=== PATIENT | male | born 1975 | race Caucasian/White ===

== ENCOUNTER 2016-10-28 15:59 | Emergency (ER) | payer OTHER ==
[~2016-10-28] VITALS: Ht 187.9 cm; Wt 86.2 kg
[~2016-10-28 15:59] MED LIST: ALPRAZOLAM2 MG PO; ATARAX,VISTARIL50 MG PO; ATARAX25 MG PO; BACTRIM DS 8001 TA1 PO; CARBIDOPA/LEVOD1 TA1 PO; CEPHALEXIN500 M1 PO; CIPROFLOXACIN500 MG PO; CLINDAMYCIN HC300 MG PO; CLINDAMYCIN150 MG PO; COMBIVENT1 ARO IH; DICLOFENAC POTA50 MG PO; EES PO; ERYTHROMYCIN ETHYLSUCCINATE PO; FIORICET 325 MG1 TAB PO; FLEXERIL5 MG PO; HYDROCODONE BIT1 T11 PO; LISINOPRIL5 MG PO; MEDROL DOSEPAK4 MG PO; METHOCARBAMOL750 M1 PO; MOTRIN800 MG PO; Motrin,Rufen800 MG PO; NAPROSYN500 MG PO; NEURONTIN100 MG PO; NEURONTIN300 MG PO; NEURONTIN400 MG PO; NEURONTIN600 MG PO; OMEPRAZOLE40 MG PO; PAROXETINE HCL30 MG PO; PAXIL10 MG PO; PAXIL20 M1 PO; PAXIL30 M1; PAXIL30 M1 PO; PAXIL30 M2 PO; PAXIL30 MG PO; PAXIL40 M1 PO; PERCOCET 325 MG1 TA2 PO; PRINIVIL10 MG PO; ROBAXIN500 MG PO; TRAMADOL HCL50 MG PO; TYLENOL W/CODEI1 TA2 PO; ULTRAM50 MG PO; VALIUM10 MG PO; VICODIN 5/500 505 MG PO; VICODIN 500 MG-1 TAB PO; VISTARIL25 M1 PO; VOLTAREN50 M1 PO; VOLTAREN75 MG PO; XANAX; XANAX XR2 MG PO; XANAX0.25 MG PO; XANAX1 MG PO; XANAX2 MG PO; ZITHROMAX Z PA250 MG PO
[2016-10-28 16:31] VITALS: BP 140/94
[2016-10-28 16:32] LABS: BASO % 0.2 % (0.0-1.0); EOS # 0.1 10*3/uL (0.0-0.4); EOS % 0.9 % (1.0-4.0); HEMATOCRIT 45.3 % (42.0-52.0); HEMOGLOBIN 14.8 g/dl (14.0-18.0); IG # 0.1 10*3/uL (0.0-0.1); LYMPH # 1.3 10*3/uL (1.3-4.4); LYMPH % 11.8 % (27.0-41.0); MEAN CELL VOLUME 92.6 fl (80.0-94.0); MEAN CORPUSCULAR HGB 30.3 pg (27.0-31.0); MEAN CORPUSCULAR HGB CONC 32.7 g/dl (33.0-37.0); MEAN PLATELET VOLUME 9.6 fl (9.6-12.3); MONO # 0.4 10*3/uL (0.1-1.0); MONO % 3.7 % (3.0-9.0); NEUT # 9.4 10*3/uL (2.3-7.9); PLATELET COUNT AUTOMATED 259 10*3/uL (130-400); RED BLOOD COUNT 4.89 10*6/uL (4.50-5.90); RED CELL DISTRI WIDTH 13.2 % (0-14.5); WHITE BLOOD COUNT 11.3 10*3/uL (4.8-10.8)
[2016-10-28 16:47] LABS: ALBUMIN 3.4 gm/dl (3.1-4.5); ALKALINE PHOSPHATASE 68 U/L (45-117); BILIRUBIN, TOTAL 0.4 mg/dl (0.2-1.0); BUN 11 mg/dl (7-24); CARBON DIOXIDE 30 mmol/L (21-32); CHLORIDE 104 mmol/L (98-107); EST GLOM FILT AFRICAN AMERICAN > 60 ml/min; GLUCOSE 152 mg/dL (65-99); POTASSIUM 4.3 mmol/L (3.5-5.1); SGOT/AST 84 IU/L (3-35); SGPT/ALT 135 U/L (12-78); SODIUM 141 mmol/L (136-145); TOTAL PROTEIN 6.9 gm/dL (6.4-8.2)
[2016-10-28 18:22] LABS: BILIRUBIN NEGATIVE (NEGATIVE); BLOOD NEGATIVE (NEGATIVE); CLARITY CLEAR (CLEAR); COLOR YELLOW (YELLOW); GLUCOSE NEGATIVE (NEGATIVE); KETONE NEGATIVE (NEGATIVE); LEUKO ESTERASE NEGATIVE (NEGATIVE); NITRITE NEGATIVE (NEGATIVE); PH 7.5 (5.0-9.0); PROTEIN 2+ (NEGATIVE); SPECIFIC GRAVITY 1.015 (1.005-1.030); UROBILINOGEN 0.2 E.U./dl (0.2-1.0)
[2016-10-28 18:24] LABS: URINE AMPHETAMINES < 1000 (1000ng/ml); URINE BARBITURATES < 200 (200ng/ml); URINE COCAINE < 300 (300ng/ml)
[2016-10-28 18:29] LABS: MUCOUS TRACE; URINE REFLEX COMMENT NO (NO)
== END 2016-10-28 20:15 | disposition home or self-care (01) ==
LOC: ED 15:59
PROVIDERS: Nurse Practitioner Family
DX: T40.1X1A Poisoning by heroin, accidental (unintentional), initial encounter (principal); F15.94 Other stimulant use, unspecified with stimulant-induced mood disorder; F41.9 Anxiety disorder, unspecified; K21.9 Gastro-esophageal reflux disease without esophagitis; I10 Essential (primary) hypertension; F12.10 Cannabis abuse, uncomplicated; F14.10 Cocaine abuse, uncomplicated; Z88.0 Allergy status to penicillin; Z88.8 Allergy status to other drugs, medicaments and biological substances; Z79.899 Other long term (current) drug therapy; Y92.9 Unspecified place or not applicable

== ENCOUNTER 2017-04-30 19:50 | Inpatient (IN) | payer OTHER ==
[2017-04-30] VITALS (9 sets, daily range): BP systolic 92–132; BP diastolic 55–82
[~2017-04-30] VITALS: Ht 177.8 cm; Wt 79.0 kg
[~2017-04-30 19:50] MED LIST changes: +XANAX0.5 MG PO; -XANAX1 MG PO
[2017-04-30 20:13] LABS: BASO # 0.1 10*3/uL (0.0-0.1); BASO % 0.5 % (0.0-1.0); EOS # 0.2 10*3/uL (0.0-0.4); EOS % 1.8 % (1.0-4.0); HEMATOCRIT 40.9 % (42.0-52.0); HEMOGLOBIN 13.6 g/dl (14.0-18.0); LYMPH # 3.7 10*3/uL (1.3-4.4); MEAN CELL VOLUME 91.9 fl (80.0-94.0); MEAN CORPUSCULAR HGB 30.6 pg (27.0-31.0); MEAN CORPUSCULAR HGB CONC 33.3 g/dl (33.0-37.0); MEAN PLATELET VOLUME 9.8 fl (9.6-12.3); MONO # 0.5 10*3/uL (0.1-1.0); MONO % 5.2 % (3.0-9.0); NEUT # 4.8 10*3/uL (2.3-7.9); NEUT % 52.3 % (47.0-73.0); PLATELET COUNT AUTOMATED 247 10*3/uL (130-400); RED BLOOD COUNT 4.45 10*6/uL (4.50-5.90); RED CELL DISTRI WIDTH 13.2 % (0-14.5); WHITE BLOOD COUNT 9.2 10*3/uL (4.8-10.8)
[2017-04-30 20:21] LABS: BILIRUBIN NEGATIVE (NEGATIVE); BLOOD NEGATIVE (NEGATIVE); CLARITY CLEAR (CLEAR); COLOR YELLOW (YELLOW); GLUCOSE NEGATIVE (NEGATIVE); KETONE NEGATIVE (NEGATIVE); LEUKO ESTERASE NEGATIVE (NEGATIVE); NITRITE NEGATIVE (NEGATIVE); PROTEIN NEGATIVE (NEGATIVE); SPECIFIC GRAVITY <= 1.005 (1.005-1.030); UROBILINOGEN 0.2 E.U./dl (0.2-1.0)
[2017-04-30] MEDS ORDERED: ARIPIPRAZOLE10 MG PO (20:23)
[2017-04-30] MEDS ORDERED: 'CLONIDINE0.1 MG PO (20:23)
[2017-04-30 20:28] LABS: RBC 0-2 rbc/hpf (0-2); WBC 0-2 wbc/hpf (0-5)
[2017-04-30 20:29] LABS: ALBUMIN 3.8 gm/dl (3.1-4.5); ALKALINE PHOSPHATASE 59 U/L (45-117); BILIRUBIN, TOTAL 0.4 mg/dl (0.2-1.0); BUN 9 mg/dl (7-24); CARBON DIOXIDE 24 mmol/L (21-32); CHLORIDE 105 mmol/L (98-107); EST GLOM FILT AFRICAN AMERICAN > 60 ml/min; GLUCOSE 110 mg/dL (65-99); POTASSIUM 3.6 mmol/L (3.5-5.1); SGOT/AST 42 IU/L (3-35); SGPT/ALT 75 U/L (12-78); SODIUM 143 mmol/L (136-145); TOTAL PROTEIN 7.2 gm/dL (6.4-8.2)
[2017-04-30 20:32] LABS: URINE AMPHETAMINES < 1000 (1000ng/ml); URINE BARBITURATES < 200 (200ng/ml); URINE COCAINE < 300 (300ng/ml)
[2017-05-01] VITALS (7 sets, daily range): BP systolic 90–128; BP diastolic 49–81
[2017-05-01 05:53] LABS: BUN 7 mg/dl (7-24); CARBON DIOXIDE 25 mmol/L (21-32); CHLORIDE 111 mmol/L (98-107); CHOLESTEROL 128 mg/dL (<200); EST GLOM FILT AFRICAN AMERICAN > 60 ml/min; FREE T4 0.84 ng/dl (0.76-1.46); GLUCOSE 126 mg/dL (65-99); HDL CHOLESTEROL 34 mg/dl (40-60); LDL CHOLESTEROL 44 mg/dL (9-159); MAGNESIUM 1.9 mg/dL (1.5-2.1); PHOSPHOROUS 2.3 mg/dL (2.5-4.9); POTASSIUM 4.4 mmol/L (3.5-5.1); SODIUM 144 mmol/L (136-145); TRIGLYCERIDES 250 mg/dl (<150); VLDL CHOLESTEROL 50 mg/dL (6-40)
[2017-05-01 05:58] LABS: BASO % 0.5 % (0.0-1.0); EOS # 0.2 10*3/uL (0.0-0.4); EOS % 2.8 % (1.0-4.0); HEMATOCRIT 36.5 % (42.0-52.0); HEMOGLOBIN 12.1 g/dl (14.0-18.0); LYMPH # 3.6 10*3/uL (1.3-4.4); LYMPH % 56.2 % (27.0-41.0); MEAN CELL VOLUME 94.3 fl (80.0-94.0); MEAN CORPUSCULAR HGB 31.3 pg (27.0-31.0); MEAN CORPUSCULAR HGB CONC 33.2 g/dl (33.0-37.0); MEAN PLATELET VOLUME 10.4 fl (9.6-12.3); MONO # 0.4 10*3/uL (0.1-1.0); MONO % 5.6 % (3.0-9.0); NEUT # 2.3 10*3/uL (2.3-7.9); NEUT % 34.6 % (47.0-73.0); PLATELET COUNT AUTOMATED 203 10*3/uL (130-400); RED BLOOD COUNT 3.87 10*6/uL (4.50-5.90); RED CELL DISTRI WIDTH 13.3 % (0-14.5); WHITE BLOOD COUNT 6.5 10*3/uL (4.8-10.8)
[2017-05-01 06:20] LABS: PROTHROMBIN TIME 10.4 SECONDS (9.0-12.4)
[2017-05-01 07:23] LABS: HEMOGLOBIN A1c 5.6 % (4.8-5.6)
[2017-05-01 07:27] LABS: VITAMIN D, 25-HYDROXY 36.6 ng/mL (30-100)
[2017-05-01 07:28] LABS: FOLIC ACID 8.45 ng/mL (>5.38)
[2017-05-01] MEDS ORDERED: ABILIFY10 MG PO (13:32)
== END 2017-05-01 18:45 | disposition home or self-care (01) | DRG 917 ==
LOC: ED 19:50 → EDHOLD 22:17 → ICCU 22:23
PROVIDERS: Emergency Medicine Emergency Medical Services; Internal Medicine
DX: T46.5X1A Poisoning by other antihypertensive drugs, accidental (unintentional), initial encounter (principal); G93.41 Metabolic encephalopathy; E83.39 Other disorders of phosphorus metabolism; E87.8 Other disorders of electrolyte and fluid balance, not elsewhere classified; F11.23 Opioid dependence with withdrawal; I10 Essential (primary) hypertension; F32.9 Major depressive disorder, single episode, unspecified; F41.9 Anxiety disorder, unspecified; K21.9 Gastro-esophageal reflux disease without esophagitis; F43.10 Post-traumatic stress disorder, unspecified; Z88.8 Allergy status to other drugs, medicaments and biological substances; F17.200 Nicotine dependence, unspecified, uncomplicated; F10.920 Alcohol use, unspecified with intoxication, uncomplicated; R74.0 Nonspecific elevation of levels of transaminase and lactic acid dehydrogenase [LDH]; E78.1 Pure hyperglyceridemia; F12.19 Cannabis abuse with unspecified cannabis-induced disorder; Z82.49 Family history of ischemic heart disease and other diseases of the circulatory system; Z87.442 Personal history of urinary calculi; Z88.0 Allergy status to penicillin; Y92.89 Other specified places as the place of occurrence of the external cause

== ENCOUNTER 2017-06-04 01:25 | Emergency (ER) | payer OTHER ==
[~2017-06-04] VITALS: Ht 172.7 cm; Wt 81.6 kg
[~2017-06-04 01:25] MED LIST changes: +'CLONIDINE0.1 MG PO; +ABILIFY10 MG PO; +ARIPIPRAZOLE10 MG PO
[2017-06-04 01:50] VITALS: BP 182/110
== END 2017-06-04 03:45 | disposition short-term general hospital (02) ==
LOC: ED 01:25
DX: S21.111A Laceration without foreign body of right front wall of thorax without penetration into thoracic cavity, initial encounter (principal); S31.119A Laceration without foreign body of abdominal wall, unspecified quadrant without penetration into peritoneal cavity, initial encounter; K21.9 Gastro-esophageal reflux disease without esophagitis; F12.10 Cannabis abuse, uncomplicated; F14.10 Cocaine abuse, uncomplicated; I10 Essential (primary) hypertension; F11.10 Opioid abuse, uncomplicated; R57.1 Hypovolemic shock; Z88.0 Allergy status to penicillin; Z88.8 Allergy status to other drugs, medicaments and biological substances; W45.8XXA Other foreign body or object entering through skin, initial encounter; Y93.89 Activity, other specified; Y92.89 Other specified places as the place of occurrence of the external cause; Y99.8 Other external cause status

== ENCOUNTER → 2017-06-29 | Outpatient (CLI) | payer OTHER ==
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
== END | disposition home or self-care (01) ==
LOC: WOUNDCARE 08:42
DX: T81.31XD Disruption of external operation (surgical) wound, not elsewhere classified, subsequent encounter (principal); F41.9 Anxiety disorder, unspecified; K21.9 Gastro-esophageal reflux disease without esophagitis; I10 Essential (primary) hypertension; E78.00 Pure hypercholesterolemia, unspecified; F10.129 Alcohol abuse with intoxication, unspecified; F12.10 Cannabis abuse, uncomplicated; F14.10 Cocaine abuse, uncomplicated; F11.10 Opioid abuse, uncomplicated; Z86.14 Personal history of Methicillin resistant Staphylococcus aureus infection; Z87.891 Personal history of nicotine dependence; Y83.8 Other surgical procedures as the cause of abnormal reaction of the patient, or of later complication, without mention of misadventure at the time of the procedure

== ENCOUNTER 2017-07-07 12:19 | Emergency (ER) | payer OTHER ==
[~2017-07-07] VITALS: Wt 72.6 kg
[2017-07-07 12:34] VITALS: BP 134/86
== END 2017-07-07 12:44 | disposition home or self-care (01) ==
LOC: ED 12:19
DX: Z48.01 Encounter for change or removal of surgical wound dressing (principal); F17.200 Nicotine dependence, unspecified, uncomplicated; K21.9 Gastro-esophageal reflux disease without esophagitis; I10 Essential (primary) hypertension; E78.00 Pure hypercholesterolemia, unspecified; F14.10 Cocaine abuse, uncomplicated; Z98.890 Other specified postprocedural states; Z87.442 Personal history of urinary calculi; Z88.8 Allergy status to other drugs, medicaments and biological substances; Z88.0 Allergy status to penicillin

== ENCOUNTER → 2017-07-11 | Outpatient (CLI) | payer OTHER | END | disposition home or self-care (01) | LOC: WOUNDCARE 02:05 | DX: T81.31XD Disruption of external operation (surgical) wound, not elsewhere classified, subsequent encounter (principal); F41.9 Anxiety disorder, unspecified; K21.9 Gastro-esophageal reflux disease without esophagitis; I10 Essential (primary) hypertension; F11.23 Opioid dependence with withdrawal; F14.10 Cocaine abuse, uncomplicated; Z87.891 Personal history of nicotine dependence; Y83.8 Other surgical procedures as the cause of abnormal reaction of the patient, or of later complication, without mention of misadventure at the time of the procedure ==

== ENCOUNTER → 2017-07-17 | Outpatient (CLI) | payer OTHER | LOC: WOUNDCARE 11:16 | DX: T81.31XD Disruption of external operation (surgical) wound, not elsewhere classified, subsequent encounter (principal); K21.9 Gastro-esophageal reflux disease without esophagitis; F41.9 Anxiety disorder, unspecified; F12.10 Cannabis abuse, uncomplicated; F14.10 Cocaine abuse, uncomplicated; F11.23 Opioid dependence with withdrawal; Z87.891 Personal history of nicotine dependence; Y83.8 Other surgical procedures as the cause of abnormal reaction of the patient, or of later complication, without mention of misadventure at the time of the procedure ==

== ENCOUNTER 2017-08-15 14:52 | Emergency (ER) | payer OTHER ==
[~2017-08-15] VITALS: Wt 77.1 kg
[2017-08-15 15:07] VITALS: BP 131/94
[2017-08-15] MEDS ORDERED: Motrin,Rufen800 MG PO (15:16)
== END 2017-08-15 15:19 | disposition left against medical advice (07) ==
LOC: ED 14:52
DX: R10.12 Left upper quadrant pain (principal); F17.200 Nicotine dependence, unspecified, uncomplicated; F12.10 Cannabis abuse, uncomplicated; Z98.890 Other specified postprocedural states; Z88.8 Allergy status to other drugs, medicaments and biological substances; Z88.0 Allergy status to penicillin

== ENCOUNTER 2017-08-21 11:28 | Emergency (ER) | payer OTHER ==
[~2017-08-21] VITALS: Ht 177.8 cm; Wt 77.1 kg
[2017-08-21 11:59] VITALS: BP 119/70
[2017-08-21 12:14] LABS: BILIRUBIN NEGATIVE (NEGATIVE); BLOOD NEGATIVE (NEGATIVE); CLARITY CLEAR (CLEAR); COLOR YELLOW (YELLOW); GLUCOSE NEGATIVE (NEGATIVE); KETONE NEGATIVE (NEGATIVE); LEUKO ESTERASE NEGATIVE (NEGATIVE); NITRITE NEGATIVE (NEGATIVE); PH 5.5 (5.0-9.0); SPECIFIC GRAVITY <= 1.005 (1.005-1.030); UROBILINOGEN 0.2 E.U./dl (0.2-1.0)
[2017-08-21 12:22] LABS: URINE AMPHETAMINES < 1000 (1000ng/ml); URINE BARBITURATES < 200 (200ng/ml); URINE BENZODIAZEPINES < 200 (200ng/ml); URINE CANNABINOIDS (THC) > 50 (50ng/ml); URINE COCAINE < 300 (300ng/ml); URINE METHADONE < 300 (300ng/ml); URINE OPIATES < 300 (300ng/ml)
[2017-08-21 12:24] LABS: MUCOUS 1+
[2017-08-21 12:25] LABS: URINE PHENCYCLIDINE < 25 (25ng/ml)
[2017-08-21 12:44] LABS: BASO % 0.4 % (0.0-1.0); EOS # 0.2 10*3/uL (0.0-0.4); EOS % 2.1 % (1.0-4.0); HEMATOCRIT 41.9 % (42.0-52.0); HEMOGLOBIN 13.3 g/dl (14.0-18.0); LYMPH % 24.1 % (27.0-41.0); MEAN CELL VOLUME 89.9 fl (80.0-94.0); MEAN CORPUSCULAR HGB 28.5 pg (27.0-31.0); MEAN CORPUSCULAR HGB CONC 31.7 g/dl (33.0-37.0); MEAN PLATELET VOLUME 10.2 fl (9.6-12.3); MONO # 0.5 10*3/uL (0.1-1.0); MONO % 5.6 % (3.0-9.0); NEUT # 5.5 10*3/uL (2.3-7.9); NEUT % 67.6 % (47.0-73.0); PLATELET COUNT AUTOMATED 455 10*3/uL (130-400); RED BLOOD COUNT 4.66 10*6/uL (4.50-5.90); RED CELL DISTRI WIDTH 13.7 % (0-14.5); WHITE BLOOD COUNT 8.2 10*3/uL (4.8-10.8)
[2017-08-21] MEDS ORDERED: CIPRO500 MG PO (14:42)
[2017-08-21] MEDS ORDERED: FLAGYL500 MG PO (14:42)
== END 2017-08-21 14:47 | disposition home or self-care (01) ==
LOC: ED 11:28
PROVIDERS: Emergency Medicine; Physician Assistant
DX: K52.9 Noninfective gastroenteritis and colitis, unspecified (principal); F17.200 Nicotine dependence, unspecified, uncomplicated; F10.10 Alcohol abuse, uncomplicated; Z88.0 Allergy status to penicillin; Z88.8 Allergy status to other drugs, medicaments and biological substances

== ENCOUNTER → 2017-10-10 | Outpatient (CLI) | payer OTHER ==
[~2017-10-10] MED LIST changes: +CIPRO500 MG PO; +FLAGYL500 MG PO
== END | disposition home or self-care (01) ==
LOC: WOUNDCARE 11:57
DX: T81.31XA Disruption of external operation (surgical) wound, not elsewhere classified, initial encounter (principal); F41.9 Anxiety disorder, unspecified; F12.10 Cannabis abuse, uncomplicated; K21.9 Gastro-esophageal reflux disease without esophagitis; F11.23 Opioid dependence with withdrawal; I10 Essential (primary) hypertension; F19.10 Other psychoactive substance abuse, uncomplicated; Z87.891 Personal history of nicotine dependence; Z72.89 Other problems related to lifestyle; Y83.8 Other surgical procedures as the cause of abnormal reaction of the patient, or of later complication, without mention of misadventure at the time of the procedure

== ENCOUNTER 2017-10-20 22:55 | Emergency (ER) | payer OTHER ==
[~2017-10-20] VITALS: Ht 177.8 cm; Wt 79.4 kg
[2017-10-20] MEDS ORDERED: GABAPENTIN800 MG PO (23:04)
[2017-10-20] MEDS ORDERED: CLONAZEPAM1 MG PO (23:04)
[2017-10-20] MEDS ORDERED: DOXEPIN HCL50 MG PO (23:05)
[2017-10-20] MEDS ORDERED: PAROXETINE HCL20 MG PO (23:05)
[2017-10-20 23:24] LABS: BASO % 0.4 % (0.0-1.0); EOS % 0.4 % (1.0-4.0); HEMATOCRIT 45.2 % (42.0-52.0); HEMOGLOBIN 14.5 g/dl (14.0-18.0); LYMPH # 2.2 10*3/uL (1.3-4.4); LYMPH % 23.7 % (27.0-41.0); MEAN CELL VOLUME 88.5 fl (80.0-94.0); MEAN CORPUSCULAR HGB 28.4 pg (27.0-31.0); MEAN CORPUSCULAR HGB CONC 32.1 g/dl (33.0-37.0); MEAN PLATELET VOLUME 9.8 fl (9.6-12.3); MONO # 0.5 10*3/uL (0.1-1.0); MONO % 4.9 % (3.0-9.0); NEUT # 6.3 10*3/uL (2.3-7.9); NEUT % 69.1 % (47.0-73.0); PLATELET COUNT AUTOMATED 339 10*3/uL (130-400); RED BLOOD COUNT 5.11 10*6/uL (4.50-5.90); RED CELL DISTRI WIDTH 15.7 % (0-14.5); WHITE BLOOD COUNT 9.1 10*3/uL (4.8-10.8)
[2017-10-20 23:31] LABS: ALBUMIN 4.1 gm/dl (3.1-4.5); ALKALINE PHOSPHATASE 102 U/L (45-117); BUN 13 mg/dl (7-24); CHLORIDE 99 mmol/L (98-107); CREATININE 1.32 mg/dL (0.70-1.30); POTASSIUM 4.6 mmol/L (3.5-5.1); SGOT/AST 32 IU/L (3-35); SGPT/ALT 51 U/L (12-78); SODIUM 139 mmol/L (136-145); TOTAL PROTEIN 8.1 gm/dL (6.4-8.2)
[2017-10-20 23:32] LABS: ACETAMINOPHEN (TYLENOL) < 2.0 ug/ml (10-30); ETHYL ALCOHOL < 3.0 mg/dl (<3)
[2017-10-21 00:52] VITALS: BP 147/89
== END 2017-10-21 01:06 | disposition home or self-care (01) ==
LOC: ED 22:55
PROVIDERS: Emergency Medicine Emergency Medical Services
DX: T40.1X1A Poisoning by heroin, accidental (unintentional), initial encounter (principal); F17.200 Nicotine dependence, unspecified, uncomplicated; K21.9 Gastro-esophageal reflux disease without esophagitis; I10 Essential (primary) hypertension; E78.00 Pure hypercholesterolemia, unspecified; F14.10 Cocaine abuse, uncomplicated; F11.10 Opioid abuse, uncomplicated; Z98.890 Other specified postprocedural states; Z87.442 Personal history of urinary calculi; Z79.899 Other long term (current) drug therapy; Z88.0 Allergy status to penicillin; Z88.8 Allergy status to other drugs, medicaments and biological substances; Y92.9 Unspecified place or not applicable

== ENCOUNTER 2017-11-15 13:03 | Emergency (ER) | payer OTHER ==
[~2017-11-15] VITALS: Ht 177.8 cm; Wt 83.5 kg
[~2017-11-15 13:03] MED LIST changes: +CLONAZEPAM1 MG PO; +DOXEPIN HCL50 MG PO; +GABAPENTIN800 MG PO; +PAROXETINE HCL20 MG PO
[2017-11-15 13:15] VITALS: BP 143/99
[2017-11-15 13:46] LABS: BILIRUBIN NEGATIVE (NEGATIVE); BLOOD NEGATIVE (NEGATIVE); CLARITY CLEAR (CLEAR); COLOR YELLOW (YELLOW); GLUCOSE NEGATIVE (NEGATIVE); KETONE NEGATIVE (NEGATIVE); LEUKO ESTERASE NEGATIVE (NEGATIVE); NITRITE NEGATIVE (NEGATIVE); UROBILINOGEN 0.2 E.U./dl (0.2-1.0)
[2017-11-15 13:54] LABS: BASO # 0.1 10*3/uL (0.0-0.1); BASO % 0.7 % (0.0-1.0); EOS # 0.2 10*3/uL (0.0-0.4); EOS % 2.2 % (1.0-4.0); HEMATOCRIT 41.6 % (42.0-52.0); LYMPH # 2.4 10*3/uL (1.3-4.4); LYMPH % 32.9 % (27.0-41.0); MEAN CELL VOLUME 84.7 fl (80.0-94.0); MEAN CORPUSCULAR HGB 28.5 pg (27.0-31.0); MEAN CORPUSCULAR HGB CONC 33.7 g/dl (33.0-37.0); MEAN PLATELET VOLUME 10.4 fl (9.6-12.3); MONO # 0.5 10*3/uL (0.1-1.0); MONO % 6.9 % (3.0-9.0); NEUT # 4.1 10*3/uL (2.3-7.9); NEUT % 57.2 % (47.0-73.0); PLATELET COUNT AUTOMATED 273 10*3/uL (130-400); RED BLOOD COUNT 4.91 10*6/uL (4.50-5.90); RED CELL DISTRI WIDTH 16.3 % (0-14.5); WHITE BLOOD COUNT 7.2 10*3/uL (4.8-10.8)
[2017-11-15 13:59] LABS: WBC 0-2 wbc/hpf (0-5)
[2017-11-15 14:42] LABS: ALBUMIN 3.4 gm/dl (3.1-4.5); ALKALINE PHOSPHATASE 88 U/L (45-117); BUN 13 mg/dl (7-24); CHLORIDE 106 mmol/L (98-107); CREATININE 0.88 mg/dL (0.70-1.30); LIPASE 192 U/L (73-393); POTASSIUM 4.4 mmol/L (3.5-5.1); SGOT/AST 23 IU/L (3-35); SGPT/ALT 51 U/L (12-78); SODIUM 141 mmol/L (136-145); TOTAL PROTEIN 6.7 gm/dL (6.4-8.2)
[2017-11-15] MEDS ORDERED: ZANAFLEX4 M1 PO (15:01)
== END 2017-11-15 15:05 | disposition home or self-care (01) ==
LOC: ED 13:03
PROVIDERS: Physician Assistant
DX: M62.838 Other muscle spasm (principal); F17.200 Nicotine dependence, unspecified, uncomplicated; Z98.890 Other specified postprocedural states; Z79.899 Other long term (current) drug therapy; Z88.8 Allergy status to other drugs, medicaments and biological substances; Z88.0 Allergy status to penicillin

== ENCOUNTER 2017-12-13 14:03 | Inpatient (IN) | payer OTHER ==
[~2017-12-13 14:03] MED LIST changes: +ZANAFLEX4 M1 PO
[2017-12-13 16:00] VITALS: BP 138/91
[2017-12-13 16:11] LABS: BASO % 0.6 % (0.0-1.0); EOS # 0.2 10*3/uL (0.0-0.4); EOS % 2.5 % (1.0-4.0); HEMATOCRIT 43.3 % (42.0-52.0); LYMPH # 2.5 10*3/uL (1.3-4.4); LYMPH % 35.2 % (27.0-41.0); MEAN CELL VOLUME 87.1 fl (80.0-94.0); MEAN CORPUSCULAR HGB 28.2 pg (27.0-31.0); MEAN CORPUSCULAR HGB CONC 32.3 g/dl (33.0-37.0); MEAN PLATELET VOLUME 9.8 fl (9.6-12.3); MONO # 0.5 10*3/uL (0.1-1.0); NEUT # 3.9 10*3/uL (2.3-7.9); NEUT % 54.4 % (47.0-73.0); PLATELET COUNT AUTOMATED 347 10*3/uL (130-400); RED BLOOD COUNT 4.97 10*6/uL (4.50-5.90); RED CELL DISTRI WIDTH 16.7 % (0-14.5); WHITE BLOOD COUNT 7.1 10*3/uL (4.8-10.8)
[2017-12-13 16:15] LABS: BILIRUBIN NEGATIVE (NEGATIVE); BLOOD NEGATIVE (NEGATIVE); CLARITY CLEAR (CLEAR); COLOR YELLOW (YELLOW); GLUCOSE NEGATIVE (NEGATIVE); KETONE TRACE (NEGATIVE); LEUKO ESTERASE NEGATIVE (NEGATIVE); NITRITE NEGATIVE (NEGATIVE); UROBILINOGEN 0.2 E.U./dl (0.2-1.0)
[2017-12-13 16:18] LABS: INTERNATIONAL NORM RATIO 0.9 (2.0-3.5)
[2017-12-13 16:24] LABS: URINE AMPHETAMINES < 1000 (1000ng/ml); URINE BARBITURATES < 200 (200ng/ml); URINE BENZODIAZEPINES > 200 (200ng/ml); URINE CANNABINOIDS (THC) > 50 (50ng/ml); URINE COCAINE > 300 (300ng/ml); URINE METHADONE < 300 (300ng/ml); URINE OPIATES < 300 (300ng/ml)
[2017-12-13 16:25] LABS: ALBUMIN 3.8 gm/dl (3.1-4.5); ALKALINE PHOSPHATASE 95 U/L (45-117); BUN 12 mg/dl (7-24); CHLORIDE 104 mmol/L (98-107); POTASSIUM 4.3 mmol/L (3.5-5.1); SGOT/AST 34 IU/L (3-35); SGPT/ALT 63 U/L (12-78); SODIUM 139 mmol/L (136-145); TOTAL PROTEIN 7.6 gm/dL (6.4-8.2)
[2017-12-13 16:30] LABS: URINE PHENCYCLIDINE < 25 (25ng/ml)
[2017-12-13 16:30] LABS: ETHYL ALCOHOL < 3.0 mg/dl (<3)
[2017-12-13 16:51] LABS: BACTERIA TRACE; HYALINE CAST 0-2; RBC 0-2 rbc/hpf (0-2)
[2017-12-13 20:00] VITALS: BP 135/88
[2017-12-14] VITALS (8 sets, daily range): BP systolic 133–178; BP diastolic 76–112
[2017-12-15 08:00] VITALS: BP 155/87
[2017-12-15 12:00] VITALS: BP 152/84
[2017-12-15 16:00] VITALS: BP 153/98
[2017-12-15 20:00] VITALS: BP 138/97
[2017-12-15 23:00] VITALS: BP 158/110
[2017-12-16] VITALS: BP 158/95
[2017-12-16 06:17] LABS: BASO % 0.5 % (0.0-1.0); EOS # 0.2 10*3/uL (0.0-0.4); EOS % 2.8 % (1.0-4.0); HEMATOCRIT 45.4 % (42.0-52.0); HEMOGLOBIN 14.8 g/dl (14.0-18.0); LYMPH # 2.2 10*3/uL (1.3-4.4); LYMPH % 29.5 % (27.0-41.0); MEAN CELL VOLUME 89.5 fl (80.0-94.0); MEAN CORPUSCULAR HGB 29.2 pg (27.0-31.0); MEAN CORPUSCULAR HGB CONC 32.6 g/dl (33.0-37.0); MEAN PLATELET VOLUME 9.8 fl (9.6-12.3); MONO # 0.6 10*3/uL (0.1-1.0); MONO % 8.2 % (3.0-9.0); NEUT # 4.4 10*3/uL (2.3-7.9); NEUT % 58.7 % (47.0-73.0); PLATELET COUNT AUTOMATED 335 10*3/uL (130-400); RED BLOOD COUNT 5.07 10*6/uL (4.50-5.90); RED CELL DISTRI WIDTH 16.1 % (0-14.5); WHITE BLOOD COUNT 7.5 10*3/uL (4.8-10.8)
[2017-12-16 08:00] VITALS: BP 124/96
[2017-12-16] MEDS ORDERED: ROPINIROLE HYD0.5 MG PO (09:54)
== END 2017-12-16 10:46 | disposition home or self-care (01) | DRG 897 ==
LOC: 4E 14:03
PROVIDERS: Emergency Medicine; Registered Nurse
DX: F11.23 Opioid dependence with withdrawal (principal); F14.10 Cocaine abuse, uncomplicated; F41.1 Generalized anxiety disorder; K21.9 Gastro-esophageal reflux disease without esophagitis; I10 Essential (primary) hypertension; F43.10 Post-traumatic stress disorder, unspecified; F17.200 Nicotine dependence, unspecified, uncomplicated; Z87.442 Personal history of urinary calculi; Z82.49 Family history of ischemic heart disease and other diseases of the circulatory system; Z88.8 Allergy status to other drugs, medicaments and biological substances; Z88.0 Allergy status to penicillin; Z79.899 Other long term (current) drug therapy

== ENCOUNTER 2018-01-09 11:28 | Emergency (ER) | payer OTHER ==
[~2018-01-09] VITALS: Ht 177.8 cm; Wt 74.8 kg
[2018-01-09 11:28] VITALS: BP 99/61
[~2018-01-09 11:28] MED LIST changes: +ROPINIROLE HYD0.5 MG PO
== END 2018-01-09 11:39 | disposition left against medical advice (07) ==
LOC: ED 11:28
DX: R10.9 Unspecified abdominal pain (principal); Z53.21 Procedure and treatment not carried out due to patient leaving prior to being seen by health care provider

== ENCOUNTER 2018-01-19 23:47 | Inpatient (IN) | payer OTHER ==
[~2018-01-19] VITALS: Ht 177.8 cm; Wt 72.6 kg
--- NOTE | ~2018-01-19 | EKG ---
[place], [place] ELECTROCARDIOGRAM REPORT NAME: BLAYNE HUTCHINSON UNIT #: [id number] ROOM: 427 DOCTOR: GEN BURR,ANSELMO BIRTHDATE: [birth year] DOS: 01/20/2018 TIME: 2350 IMPRESSION: 1. Sinus rhythm. 2. Sinus tachycardia. 3. Baseline ST-T changes. 4. Normal QT interval. ANSELMO BLEVINS MD CM:EKGRPT:ELECTROCARDIOGRAM REPORT 0832 0854 ANSELMO BLEVINS MD
--- NOTE | ~2018-01-19 | EKG ---
[place], [place] ELECTROCARDIOGRAM REPORT NAME: BLAYNE HUTCHINSON UNIT #: [id number] ROOM: 427 DOCTOR: GEN BURR,ANSELMO BIRTHDATE: [birth year] DOS: 01/20/2018 TIME: 2:49 a.m. IMPRESSION: 1. Sinus rhythm. 2. Anterior ST elevation, possible early repolarization versus pericarditis. 3. Normal QT interval. ANSELMO BLEVINS MD CM:EKGRPT:ELECTROCARDIOGRAM REPORT 0833 0855 ANSELMO BLEVINS MD
--- NOTE | ~2018-01-19 | EKG ---
[place], [place] ELECTROCARDIOGRAM REPORT NAME: BLAYNE HUTCHINSON UNIT #: [id number] ROOM: [facility] DOCTOR: GEN BURR,ANSELMO BIRTHDATE: [birth year] DOS: 01/20/2018 TIME: 5:50 a.m. IMPRESSION: 1. Normal sinus rhythm. 2. Some anterior ST elevation, possibly early repolarization. 3. Normal QT interval. 4. Borderline sinus bradycardia. ANSELMO BLEVINS MD CM:EKGRPT:ELECTROCARDIOGRAM REPORT 0851 ANSELMO BLEVINS MD
--- NOTE | ~2018-01-19 | CON ---
[place], [place] REPORT OF CONSULTATION NAME: BLAYNE HUTCHINSON UNIT #: [id number] ROOM: 427 DOCTOR: BRYANT LONGORIA MD BIRTHDATE: [birth year] DOS: 01/20/2018 CHIEF COMPLAINT: "I am going through some withdrawal right now." HISTORY OF PRESENT ILLNESS: This is a 42-year-old white male who reports a history of both panic disorder and posttraumatic stress disorder as well as significant cocaine, marijuana and heroin abuse. Most recently, his drug of choice has been heroin that he uses daily. He states that he was brought in now because of right-sided weakness and in the course of being worked up, he notes that he is going through opiate withdrawal. He currently notes increased diaphoresis, abdominal discomfort, cramping, diarrhea, nausea and shakiness. He requests something to help block the symptoms. He denies current depression, although the chart indicates and he did agree that he has lost significant weight. There are some depressive components that I see, however. MENTAL STATUS: He is alert and oriented to person, place and time. Mood does seem to be depressed. Affect is somewhat constricted. He is anxious, some of this may be because of opiate withdrawal. There is no anai or hypomania. There are no psychotic symptoms noted. DIAGNOSES: Major depression, recurrent and opioid withdrawal. PLAN: I will go ahead and start him on Zyprexa 2.5 mg twice daily. This should block some of the nausea, cramping and withdrawal symptoms. Use Remeron 15 mg at nighttime to also aid sleep, improve appetite and block withdrawal symptoms and utilize clonidine, not for blood pressure, but for opiate withdrawal at a dose of 0.1 mg twice daily. At this point, once you feel that he is medically stable, he can be discharged. A referral to a substance abuse program would be a reasonable approach. BRYANT LONGORIA MD CM:CONSTR:REPORT OF CONSULTATION 5 01/20/18 0934 interface
[2018-01-19 23:47] VITALS: BP 158/105
[2018-01-20 00:21] VITALS: BP 148/101
[2018-01-20 00:24] LABS: BASO % 0.3 % (0.0-1.0); EOS % 0.3 % (1.0-4.0); HEMATOCRIT 46.3 % (42.0-52.0); HEMOGLOBIN 15.3 g/dl (14.0-18.0); LYMPH # 1.9 10*3/uL (1.3-4.4); LYMPH % 19.5 % (27.0-41.0); MEAN CELL VOLUME 87.5 fl (80.0-94.0); MEAN CORPUSCULAR HGB 28.9 pg (27.0-31.0); MEAN PLATELET VOLUME 10.2 fl (9.6-12.3); MONO # 0.5 10*3/uL (0.1-1.0); MONO % 5.1 % (3.0-9.0); NEUT # 7.4 10*3/uL (2.3-7.9); NEUT % 74.3 % (47.0-73.0); PLATELET COUNT AUTOMATED 310 10*3/uL (130-400); RED BLOOD COUNT 5.29 10*6/uL (4.50-5.90); RED CELL DISTRI WIDTH 13.2 % (0-14.5); WHITE BLOOD COUNT 9.9 10*3/uL (4.8-10.8)
[2018-01-20 00:28] LABS: ACT PARTIAL THROMBO TIME 22.8 SECONDS (20.8-31.5)
[2018-01-20 00:35] LABS: ACETAMINOPHEN (TYLENOL) < 2.0 ug/ml (10-30); ALBUMIN 4.3 gm/dl (3.1-4.5); ALKALINE PHOSPHATASE 85 U/L (45-117); BUN 14 mg/dl (7-24); CHLORIDE 100 mmol/L (98-107); CREATININE 1.06 mg/dL (0.70-1.30); POTASSIUM 3.6 mmol/L (3.5-5.1); SGOT/AST 27 IU/L (3-35); SGPT/ALT 52 U/L (12-78); SODIUM 136 mmol/L (136-145); TOTAL PROTEIN 8.3 gm/dL (6.4-8.2)
[2018-01-20 00:37] LABS: TROPONIN I < 0.015 ng/ml (<0.045)
[2018-01-20 00:39] VITALS: BP 127/87
[2018-01-20 00:56] VITALS: BP 122/84
[2018-01-20 01:10] VITALS: BP 125/65
[2018-01-20 01:30] VITALS: BP 119/81
[2018-01-20] MEDS ORDERED: CLONAZEPAM1 MG PO (01:42)
[2018-01-20 02:38] LABS: URINE AMPHETAMINES < 1000 (1000ng/ml); URINE BARBITURATES < 200 (200ng/ml); URINE BENZODIAZEPINES < 200 (200ng/ml); URINE CANNABINOIDS (THC) > 50 (50ng/ml); URINE COCAINE > 300 (300ng/ml); URINE METHADONE < 300 (300ng/ml); URINE OPIATES > 300 (300ng/ml)
[2018-01-20 02:44] LABS: URINE PHENCYCLIDINE < 25 (25ng/ml)
[2018-01-20 04:41] LABS: ALBUMIN 3.6 gm/dl (3.1-4.5); ALKALINE PHOSPHATASE 67 U/L (45-117); BUN 12 mg/dl (7-24); CHLORIDE 102 mmol/L (98-107); CHOLESTEROL 145 mg/dL (<200); CREATININE 1.09 mg/dL (0.70-1.30); HDL CHOLESTEROL 50 mg/dl (40-60); LDL CHOLESTEROL 79 mg/dL (9-159); PHOSPHOROUS 4.1 mg/dL (2.5-4.9); POTASSIUM 3.3 mmol/L (3.5-5.1); SGOT/AST 23 IU/L (3-35); SGPT/ALT 44 U/L (12-78); SODIUM 138 mmol/L (136-145); TRIGLYCERIDES 80 mg/dl (<150); VLDL CHOLESTEROL 16 mg/dL (6-40)
[2018-01-20 04:42] LABS: FREE T4 0.94 ng/dl (0.76-1.46)
[2018-01-20 04:47] LABS: THYROID STIM HORMONE (HS) 0.505 uIU/ml (0.358-4.75)
[2018-01-20 06:04] LABS: BASO % 0.2 % (0.0-1.0); EOS # 0.1 10*3/uL (0.0-0.4); HEMATOCRIT 40.9 % (42.0-52.0); HEMOGLOBIN 13.3 g/dl (14.0-18.0); LYMPH # 2.8 10*3/uL (1.3-4.4); LYMPH % 30.5 % (27.0-41.0); MEAN CELL VOLUME 88.3 fl (80.0-94.0); MEAN CORPUSCULAR HGB 28.7 pg (27.0-31.0); MEAN CORPUSCULAR HGB CONC 32.5 g/dl (33.0-37.0); MEAN PLATELET VOLUME 10.2 fl (9.6-12.3); MONO # 0.8 10*3/uL (0.1-1.0); MONO % 8.5 % (3.0-9.0); NEUT # 5.4 10*3/uL (2.3-7.9); NEUT % 59.6 % (47.0-73.0); PLATELET COUNT AUTOMATED 272 10*3/uL (130-400); RED BLOOD COUNT 4.63 10*6/uL (4.50-5.90); RED CELL DISTRI WIDTH 13.2 % (0-14.5); WHITE BLOOD COUNT 9.1 10*3/uL (4.8-10.8)
[2018-01-20 07:33] LABS: VITAMIN D, 25-HYDROXY 18.7 ng/mL (30-100)
[2018-01-20 08:00] VITALS: BP 100/56
== END 2018-01-20 10:30 | disposition left against medical advice (07) | DRG 69 ==
LOC: ED 23:47 → EDHOLD 01-20 01:03 → 4E 01-20 01:23
PROVIDERS: Emergency Medicine Emergency Medical Services; Internal Medicine
DX: G45.9 Transient cerebral ischemic attack, unspecified (principal); F33.9 Major depressive disorder, recurrent, unspecified; F11.23 Opioid dependence with withdrawal; I16.1 Hypertensive emergency; I10 Essential (primary) hypertension; K21.9 Gastro-esophageal reflux disease without esophagitis; F41.1 Generalized anxiety disorder; F43.10 Post-traumatic stress disorder, unspecified; E78.1 Pure hyperglyceridemia; F14.10 Cocaine abuse, uncomplicated; F12.10 Cannabis abuse, uncomplicated; F19.10 Other psychoactive substance abuse, uncomplicated; R00.0 Tachycardia, unspecified; R06.82 Tachypnea, not elsewhere classified; D72.810 Lymphocytopenia; R73.9 Hyperglycemia, unspecified; Z71.6 Tobacco abuse counseling; Z79.899 Other long term (current) drug therapy; Z72.0 Tobacco use; Z87.828 Personal history of other (healed) physical injury and trauma; Z86.19 Personal history of other infectious and parasitic diseases; Z87.442 Personal history of urinary calculi; Z84.1 Family history of disorders of kidney and ureter; Z80.0 Family history of malignant neoplasm of digestive organs; Z82.49 Family history of ischemic heart disease and other diseases of the circulatory system; Z88.0 Allergy status to penicillin; Z88.8 Allergy status to other drugs, medicaments and biological substances

== ENCOUNTER 2018-02-23 14:06 | Emergency (ER) | payer OTHER ==
[~2018-02-23] VITALS: Wt 77.1 kg
[2018-02-23 14:59] LABS: BASO % 0.6 % (0.0-1.0); EOS # 0.1 10*3/uL (0.0-0.4); EOS % 1.5 % (1.0-4.0); HEMATOCRIT 43.6 % (42.0-52.0); HEMOGLOBIN 14.1 g/dl (14.0-18.0); LYMPH # 2.4 10*3/uL (1.3-4.4); MEAN CELL VOLUME 89.7 fl (80.0-94.0); MEAN CORPUSCULAR HGB CONC 32.3 g/dl (33.0-37.0); MEAN PLATELET VOLUME 9.5 fl (9.6-12.3); MONO # 0.6 10*3/uL (0.1-1.0); MONO % 7.9 % (3.0-9.0); NEUT % 55.6 % (47.0-73.0); PLATELET COUNT AUTOMATED 307 10*3/uL (130-400); RED BLOOD COUNT 4.86 10*6/uL (4.50-5.90); RED CELL DISTRI WIDTH 13.5 % (0-14.5); WHITE BLOOD COUNT 7.1 10*3/uL (4.8-10.8)
[2018-02-23 15:07] LABS: INTERNATIONAL NORM RATIO 0.9 (2.0-3.5)
[2018-02-23 15:12] LABS: BILIRUBIN NEGATIVE (NEGATIVE); BLOOD NEGATIVE (NEGATIVE); CLARITY CLEAR (CLEAR); COLOR YELLOW (YELLOW); GLUCOSE NEGATIVE (NEGATIVE); KETONE NEGATIVE (NEGATIVE); LEUKO ESTERASE NEGATIVE (NEGATIVE); NITRITE NEGATIVE (NEGATIVE); PH 7.5 (5.0-9.0); SPECIFIC GRAVITY 1.015 (1.005-1.030)
[2018-02-23 15:19] LABS: URINE AMPHETAMINES < 1000 (1000ng/ml); URINE BARBITURATES < 200 (200ng/ml); URINE BENZODIAZEPINES > 200 (200ng/ml); URINE CANNABINOIDS (THC) > 50 (50ng/ml); URINE COCAINE > 300 (300ng/ml); URINE METHADONE < 300 (300ng/ml); URINE OPIATES < 300 (300ng/ml); URINE PHENCYCLIDINE < 25 (25ng/ml)
[2018-02-23 15:19] LABS: ALBUMIN 3.4 gm/dl (3.1-4.5); ALKALINE PHOSPHATASE 99 U/L (45-117); BUN 10 mg/dl (7-24); CHLORIDE 104 mmol/L (98-107); CREATININE 1.12 mg/dL (0.70-1.30); LIPASE 224 U/L (73-393); POTASSIUM 4.1 mmol/L (3.5-5.1); SGOT/AST 27 IU/L (3-35); SGPT/ALT 46 U/L (12-78); SODIUM 140 mmol/L (136-145); TOTAL PROTEIN 7.5 gm/dL (6.4-8.2)
[2018-02-23 15:21] LABS: TROPONIN I < 0.015 ng/ml (<0.045)
[2018-02-23 15:26] LABS: BACTERIA TRACE; HYALINE CAST 0-2
[2018-02-23 15:27] LABS: MUCOUS 1+; RBC 0-2 rbc/hpf (0-2); WBC 0-2 wbc/hpf (0-5)
[2018-02-23] MEDS ORDERED: CHLORZOXAZONE500 M2 PO (15:39)
[2018-02-23 16:05] VITALS: BP 132/68
== END 2018-02-23 16:48 | disposition home or self-care (01) ==
LOC: ED 14:06
PROVIDERS: Physician Assistant
DX: G89.29 Other chronic pain (principal); R10.12 Left upper quadrant pain; R07.89 Other chest pain; F17.200 Nicotine dependence, unspecified, uncomplicated; Z98.890 Other specified postprocedural states; Z88.0 Allergy status to penicillin; Z88.8 Allergy status to other drugs, medicaments and biological substances

== ENCOUNTER 2018-03-30 13:53 | Emergency (ER) | payer OTHER ==
[~2018-03-30] VITALS: Ht 177.8 cm; Wt 77.1 kg
[~2018-03-30 13:53] MED LIST changes: +CHLORZOXAZONE500 M2 PO
[2018-03-30 13:55] VITALS: BP 129/87
[2018-03-30 14:48] LABS: BASO % 0.5 % (0.0-1.0); EOS # 0.2 10*3/uL (0.0-0.4); EOS % 2.6 % (1.0-4.0); HEMATOCRIT 42.1 % (42.0-52.0); HEMOGLOBIN 13.6 g/dl (14.0-18.0); LYMPH # 1.8 10*3/uL (1.3-4.4); LYMPH % 28.9 % (27.0-41.0); MEAN CELL VOLUME 88.4 fl (80.0-94.0); MEAN CORPUSCULAR HGB 28.6 pg (27.0-31.0); MEAN CORPUSCULAR HGB CONC 32.3 g/dl (33.0-37.0); MEAN PLATELET VOLUME 9.5 fl (9.6-12.3); MONO # 0.4 10*3/uL (0.1-1.0); MONO % 6.9 % (3.0-9.0); NEUT # 3.8 10*3/uL (2.3-7.9); NEUT % 60.8 % (47.0-73.0); PLATELET COUNT AUTOMATED 347 10*3/uL (130-400); RED BLOOD COUNT 4.76 10*6/uL (4.50-5.90); RED CELL DISTRI WIDTH 13.9 % (0-14.5); WHITE BLOOD COUNT 6.2 10*3/uL (4.8-10.8)
[2018-03-30 14:56] LABS: ACT PARTIAL THROMBO TIME 24.7 SECONDS (20.8-31.5); INTERNATIONAL NORM RATIO 0.9 (2.0-3.5)
[2018-03-30 15:02] LABS: ALBUMIN 3.5 gm/dl (3.1-4.5); ALKALINE PHOSPHATASE 102 U/L (45-117); BUN 10 mg/dl (7-24); CHLORIDE 104 mmol/L (98-107); CREATININE 0.81 mg/dL (0.70-1.30); LIPASE 121 U/L (73-393); POTASSIUM 4.4 mmol/L (3.5-5.1); SGOT/AST 30 IU/L (3-35); SGPT/ALT 64 U/L (12-78); SODIUM 139 mmol/L (136-145); TOTAL PROTEIN 7.6 gm/dL (6.4-8.2)
[2018-03-30 15:03] LABS: TROPONIN I < 0.015 ng/ml (<0.045)
[2018-03-30] MEDS ORDERED: VISTARIL50 MG PO (16:23)
== END 2018-03-30 16:28 | disposition home or self-care (01) ==
LOC: ED 13:53
PROVIDERS: Nurse Practitioner Family
DX: F41.9 Anxiety disorder, unspecified (principal); F17.200 Nicotine dependence, unspecified, uncomplicated; F43.10 Post-traumatic stress disorder, unspecified; G89.29 Other chronic pain; K21.9 Gastro-esophageal reflux disease without esophagitis; I10 Essential (primary) hypertension; F14.10 Cocaine abuse, uncomplicated; Z87.442 Personal history of urinary calculi; Z88.0 Allergy status to penicillin; Z88.8 Allergy status to other drugs, medicaments and biological substances

== ENCOUNTER 2018-05-04 01:06 | Inpatient (IN) | payer OTHER ==
[~2018-05-04] VITALS: Ht 179.1 cm; Wt 79.9 kg
--- NOTE | ~2018-05-04 | EKG ---
[place], [place] ELECTROCARDIOGRAM REPORT NAME: BLAYNE HUTCHINSON UNIT #: [id number] ROOM: 420 DOCTOR: CA DRAFT REPORT BIRTHDATE: [address] [facility] Test Date: 2018-05-04 Test Time: 01:25:58 Pat Name: BLAYNE HUTCHINSON Department: ER Room: 5 Gender: M Melting Operator: : 1975 Requested By: RENE GALVEZ Order Number: [id number] Reading MD: Bam Kearns MD Measurements Intervals [place] Rate: 92 P: 26 MO: 148 QRS: 41 QRSD: 91 T: 44 QT: 355 QTc: 440 Interpretive Statements Sinus rhythm Normal EKG. Electronically Signed On 05-04-2018 12:03:23 PDT by Bam Kearns MD CM:EKGRPT:ELECTROCARDIOGRAM REPORT 0125 1203 RENE GALVEZ MD EPIPHANY DRAFT REPORT RENE GALVEZ MD
[~2018-05-04 01:06] MED LIST changes: +VISTARIL50 MG PO
[2018-05-04 01:13] VITALS: BP 156/104
[2018-05-04 01:26] LABS: BASO # 0.1 10*3/uL (0.0-0.1); BASO % 0.7 % (0.0-1.0); EOS # 0.2 10*3/uL (0.0-0.4); HEMATOCRIT 41.1 % (42.0-52.0); HEMOGLOBIN 12.9 g/dl (14.0-18.0); LYMPH # 2.1 10*3/uL (1.3-4.4); MEAN CELL VOLUME 90.7 fl (80.0-94.0); MEAN CORPUSCULAR HGB 28.5 pg (27.0-31.0); MEAN CORPUSCULAR HGB CONC 31.4 g/dl (33.0-37.0); MEAN PLATELET VOLUME 9.4 fl (9.6-12.3); MONO # 0.6 10*3/uL (0.1-1.0); MONO % 6.9 % (3.0-9.0); NEUT # 5.2 10*3/uL (2.3-7.9); NEUT % 63.9 % (47.0-73.0); PLATELET COUNT AUTOMATED 307 10*3/uL (130-400); RED BLOOD COUNT 4.53 10*6/uL (4.50-5.90); RED CELL DISTRI WIDTH 14.5 % (0-14.5); WHITE BLOOD COUNT 8.1 10*3/uL (4.8-10.8)
[2018-05-04 01:38] LABS: BUN 13 mg/dl (7-24); CHLORIDE 101 mmol/L (98-107); CREATININE 1.03 mg/dL (0.70-1.30); POTASSIUM 4.2 mmol/L (3.5-5.1); SODIUM 136 mmol/L (136-145)
[2018-05-04 01:39] LABS: ACETAMINOPHEN (TYLENOL) < 2.0 ug/ml (10-30); ETHYL ALCOHOL < 3.0 mg/dl (<3)
[2018-05-04 02:51] LABS: BILIRUBIN NEGATIVE (NEGATIVE); BLOOD NEGATIVE (NEGATIVE); CLARITY CLEAR (CLEAR); COLOR YELLOW (YELLOW); GLUCOSE NEGATIVE (NEGATIVE); KETONE NEGATIVE (NEGATIVE); LEUKO ESTERASE NEGATIVE (NEGATIVE); NITRITE NEGATIVE (NEGATIVE)
[2018-05-04 02:55] LABS: URINE AMPHETAMINES > 1000 (1000ng/ml); URINE BARBITURATES > 200 (200ng/ml); URINE BENZODIAZEPINES > 200 (200ng/ml); URINE CANNABINOIDS (THC) > 50 (50ng/ml); URINE COCAINE > 300 (300ng/ml); URINE METHADONE < 300 (300ng/ml); URINE OPIATES < 300 (300ng/ml)
[2018-05-04 02:57] LABS: URINE PHENCYCLIDINE < 25 (25ng/ml)
[2018-05-04 03:11] VITALS: BP 140/89
[2018-06-13] MEDS ORDERED: PAXIL10 MG PO (07:59)
[2018-06-13] MEDS ORDERED: VISTARIL50 MG PO (08:01)
[2018-06-13] MEDS ORDERED: GABAPENTIN800 MG PO (08:01)
[2018-06-13] MEDS ORDERED: ATIVAN0.5 MG PO (08:02)
[2018-06-13] MEDS ORDERED: CATAPRES0.2 M1 PO (08:02)
[2018-06-20] MEDS ORDERED: ATIVAN1 MG PO (12:02)
[2018-06-20] MEDS ORDERED: DEPAKOTE DR500 MG PO (12:02)
== END 2018-05-04 06:44 | disposition left against medical advice (07) | DRG 894 ==
LOC: ED 01:06 → EDHOLD 01:53 → 4E 02:26
PROVIDERS: Emergency Medicine Emergency Medical Services
DX: F13.239 Sedative, hypnotic or anxiolytic dependence with withdrawal, unspecified (principal); B18.2 Chronic viral hepatitis C; E78.1 Pure hyperglyceridemia; G25.81 Restless legs syndrome; F19.10 Other psychoactive substance abuse, uncomplicated; F11.23 Opioid dependence with withdrawal; F14.10 Cocaine abuse, uncomplicated; F15.10 Other stimulant abuse, uncomplicated; K59.03 Drug induced constipation; F12.10 Cannabis abuse, uncomplicated; R80.9 Proteinuria, unspecified; K21.9 Gastro-esophageal reflux disease without esophagitis; Z53.21 Procedure and treatment not carried out due to patient leaving prior to being seen by health care provider; F17.210 Nicotine dependence, cigarettes, uncomplicated; F41.1 Generalized anxiety disorder; I10 Essential (primary) hypertension; F43.10 Post-traumatic stress disorder, unspecified; G89.29 Other chronic pain; D64.9 Anemia, unspecified; E55.9 Vitamin D deficiency, unspecified; Z71.6 Tobacco abuse counseling; Z87.442 Personal history of urinary calculi; Z86.14 Personal history of Methicillin resistant Staphylococcus aureus infection; Z86.73 Personal history of transient ischemic attack (TIA), and cerebral infarction without residual deficits; Z82.49 Family history of ischemic heart disease and other diseases of the circulatory system; Z80.0 Family history of malignant neoplasm of digestive organs; Z84.1 Family history of disorders of kidney and ureter; Z88.0 Allergy status to penicillin; Z88.8 Allergy status to other drugs, medicaments and biological substances

== ENCOUNTER 2018-05-05 14:10 | Inpatient (IN) | payer OTHER ==
[~2018-05-05] VITALS: Ht 177.8 cm; Wt 78.5 kg
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
--- NOTE | ~2018-05-05 | EKG ---
[place], [place] ELECTROCARDIOGRAM REPORT NAME: BLAYNE HUTCHINSON UNIT #: [id number] ROOM: 522 DOCTOR: CA DRAFT REPORT BIRTHDATE: [birth year] 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
--- NOTE | ~2018-05-05 | EKG ---
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
--- NOTE | ~2018-05-05 | EKG ---
[place], [place] ELECTROCARDIOGRAM REPORT NAME: BLAYNE HUTCHINSON UNIT #: [id number] ROOM: 522 DOCTOR: CA DRAFT REPORT BIRTHDATE: [birth year] [facility] Test Date: 2018-05-05 Test Time: 14:14:47 Pat Name: BLAYNE HUTCHINSON Department: Room: Gender: Component Engineer: ARIA : 1975 Requested By: TAJ SANTOS Order Number: [id number] Reading MD: Jj Maldonado MD Measurements Intervals [place] Rate: 95 P: 68 NH: 150 QRS: 59 QRSD: 92 T: 74 QT: 350 QTc: 440 Interpretive Statements Sinus rhythm Compared to ECG 05/04/2018 01:25:58 No significant changes Electronically Signed On 05-05-2018 15:09:22 PDT by Jj Maldonado MD CM:EKGRPT:ELECTROCARDIOGRAM REPORT 1414 1509 TAJ PENALOZA DRAFT REPORT TAJ SANTOS M.D.
[2018-05-05 14:28] VITALS: BP 125/91
[2018-05-05 14:42] LABS: BASO % 0.4 % (0.0-1.0); EOS # 0.1 10*3/uL (0.0-0.4); EOS % 1.9 % (1.0-4.0); HEMATOCRIT 42.9 % (42.0-52.0); HEMOGLOBIN 14.1 g/dl (14.0-18.0); LYMPH # 2.1 10*3/uL (1.3-4.4); LYMPH % 30.7 % (27.0-41.0); MEAN CELL VOLUME 87.7 fl (80.0-94.0); MEAN CORPUSCULAR HGB 28.8 pg (27.0-31.0); MEAN CORPUSCULAR HGB CONC 32.9 g/dl (33.0-37.0); MEAN PLATELET VOLUME 9.6 fl (9.6-12.3); MONO # 0.5 10*3/uL (0.1-1.0); MONO % 7.5 % (3.0-9.0); NEUT % 59.2 % (47.0-73.0); PLATELET COUNT AUTOMATED 315 10*3/uL (130-400); RED BLOOD COUNT 4.89 10*6/uL (4.50-5.90); RED CELL DISTRI WIDTH 14.5 % (0-14.5); WHITE BLOOD COUNT 6.7 10*3/uL (4.8-10.8)
[2018-05-05 14:48] LABS: INTERNATIONAL NORM RATIO 0.9 (2.0-3.5)
[2018-05-05 14:49] LABS: ALBUMIN 3.9 gm/dl (3.1-4.5); ALKALINE PHOSPHATASE 117 U/L (45-117); BUN 12 mg/dl (7-24); CHLORIDE 103 mmol/L (98-107); CREATININE 1.05 mg/dL (0.70-1.30); SGOT/AST 36 IU/L (3-35); SGPT/ALT 54 U/L (12-78); SODIUM 137 mmol/L (136-145); TOTAL PROTEIN 8.1 gm/dL (6.4-8.2)
[2018-05-05 14:56] LABS: TROPONIN I < 0.015 ng/ml (<0.045)
[2018-05-05 15:17] VITALS: BP 142/94
[2018-05-05 16:00] VITALS: BP 124/78
[2018-05-05 16:20] LABS: BILIRUBIN NEGATIVE (NEGATIVE); BLOOD NEGATIVE (NEGATIVE); CLARITY SL CLOUDY (CLEAR); COLOR YELLOW (YELLOW); GLUCOSE NEGATIVE (NEGATIVE); KETONE NEGATIVE (NEGATIVE); LEUKO ESTERASE TRACE (NEGATIVE); NITRITE NEGATIVE (NEGATIVE); PH 8.5 (5.0-9.0)
[2018-05-05 16:25] LABS: BACTERIA TRACE; EPITHELIAL CELLS 0-2; RBC 0-2 rbc/hpf (0-2); WBC 16-20 wbc/hpf (0-5)
[2018-05-05 16:28] LABS: URINE AMPHETAMINES > 1000 (1000ng/ml); URINE BARBITURATES > 200 (200ng/ml); URINE BENZODIAZEPINES > 200 (200ng/ml); URINE CANNABINOIDS (THC) > 50 (50ng/ml); URINE COCAINE > 300 (300ng/ml); URINE METHADONE < 300 (300ng/ml); URINE OPIATES < 300 (300ng/ml)
[2018-05-05 16:38] LABS: URINE PHENCYCLIDINE < 25 (25ng/ml)
[2018-05-05 17:00] VITALS: BP 124/78
[2018-05-05 20:00] VITALS: BP 114/81
[2018-05-06] VITALS: BP 122/80
[2018-06-13] MEDS ORDERED: PAXIL10 MG PO (07:59)
[2018-06-13] MEDS ORDERED: GABAPENTIN800 MG PO (08:01)
[2018-06-13] MEDS ORDERED: VISTARIL50 MG PO (08:01)
[2018-06-13] MEDS ORDERED: ATIVAN0.5 MG PO (08:02)
[2018-06-13] MEDS ORDERED: CATAPRES0.2 M1 PO (08:02)
[2018-06-20] MEDS ORDERED: ATIVAN1 MG PO (12:02)
[2018-06-20] MEDS ORDERED: DEPAKOTE DR500 MG PO (12:02)
== END 2018-05-06 03:31 | disposition left against medical advice (07) | DRG 313 ==
LOC: ED 14:10 → EDHOLD 15:48 → 5E 16:06
PROVIDERS: Emergency Medicine; Physician Assistant
DX: R07.9 Chest pain, unspecified (principal); F11.20 Opioid dependence, uncomplicated; F12.10 Cannabis abuse, uncomplicated; F14.10 Cocaine abuse, uncomplicated; F17.210 Nicotine dependence, cigarettes, uncomplicated; F19.10 Other psychoactive substance abuse, uncomplicated; G89.4 Chronic pain syndrome; F43.10 Post-traumatic stress disorder, unspecified; F15.10 Other stimulant abuse, uncomplicated; I10 Essential (primary) hypertension; F41.1 Generalized anxiety disorder; K21.9 Gastro-esophageal reflux disease without esophagitis; F41.9 Anxiety disorder, unspecified; Z88.0 Allergy status to penicillin; Z88.8 Allergy status to other drugs, medicaments and biological substances; Z84.1 Family history of disorders of kidney and ureter; Z80.0 Family history of malignant neoplasm of digestive organs; Z82.49 Family history of ischemic heart disease and other diseases of the circulatory system; Z86.19 Personal history of other infectious and parasitic diseases; Z87.442 Personal history of urinary calculi; Z86.14 Personal history of Methicillin resistant Staphylococcus aureus infection; Z86.73 Personal history of transient ischemic attack (TIA), and cerebral infarction without residual deficits

== ENCOUNTER 2018-08-23 03:11 | Inpatient (IN) | payer OTHER ==
[~2018-08-23] VITALS: Ht 177.8 cm; Wt 76.7 kg
--- NOTE | ~2018-08-23 | EKG ---
[place], [place] ELECTROCARDIOGRAM REPORT NAME: BLAYNE HUTCHINSON UNIT #: [id number] ROOM: 520 DOCTOR: CA DRAFT REPORT BIRTHDATE: [birth year] [facility] Test Date: 2018-08-23 Test Time: 03:26:07 Pat Name: BLAYNE HUTCHINSON Department: Room: 520 Gender: M Physical Metallurgist: MOISES : 1975 Requested By: ELIANE RAMIREZ Order Number: [id number] Reading MD: Chase Bean MD Measurements Intervals [place] Rate: 111 P: 50 [place]: 160 QRS: 51 QRSD: 91 T: 57 QT: 315 QTc: 428 Interpretive Statements Sinus tachycardia Artifact in lead(s) I,II,III,aVR,aVL,aVF Compared to ECG 06/19/2018 20:15:34 Sinus rhythm no longer present Electronically Signed On 08-23-2018 8:31:18 PDT by Chase Bean MD CM:EKGRPT:ELECTROCARDIOGRAM REPORT 0326 0831 ELIANE SANCHEZ DRAFT REPORT ELIANE RAMIREZ DO
[~2018-08-23 03:11] MED LIST changes: +ATIVAN0.5 MG PO; +ATIVAN1 MG PO; +CATAPRES0.2 M1 PO; +DEPAKOTE DR500 MG PO
[2018-08-23 03:14] VITALS: BP 116/80
[2018-08-23] MEDS ORDERED: XANAX1 MG PO (03:20)
[2018-08-23 03:37] LABS: BILIRUBIN NEGATIVE (NEGATIVE); BLOOD TRACE-INTACT (NEGATIVE); CLARITY SL CLOUDY (CLEAR); COLOR YELLOW (YELLOW); GLUCOSE NEGATIVE (NEGATIVE); KETONE NEGATIVE (NEGATIVE); LEUKO ESTERASE NEGATIVE (NEGATIVE); NITRITE NEGATIVE (NEGATIVE); UROBILINOGEN 0.2 E.U./dl (0.2-1.0)
[2018-08-23 03:39] LABS: BASO % 0.4 % (0.0-1.0); EOS # 0.1 10*3/uL (0.0-0.4); EOS % 0.7 % (1.0-4.0); HEMATOCRIT 47.3 % (42.0-52.0); HEMOGLOBIN 15.6 g/dl (14.0-18.0); LYMPH # 1.6 10*3/uL (1.3-4.4); LYMPH % 14.3 % (27.0-41.0); MEAN CELL VOLUME 86.8 fl (80.0-94.0); MEAN CORPUSCULAR HGB 28.6 pg (27.0-31.0); MEAN PLATELET VOLUME 9.1 fl (9.6-12.3); MONO # 0.6 10*3/uL (0.1-1.0); MONO % 5.2 % (3.0-9.0); NEUT # 8.8 10*3/uL (2.3-7.9); NEUT % 79.1 % (47.0-73.0); PLATELET COUNT AUTOMATED 264 10*3/uL (130-400); RED BLOOD COUNT 5.45 10*6/uL (4.50-5.90); RED CELL DISTRI WIDTH 13.6 % (0-14.5); WHITE BLOOD COUNT 11.1 10*3/uL (4.8-10.8)
[2018-08-23 03:44] LABS: MUCOUS TRACE
[2018-08-23 03:47] LABS: URINE AMPHETAMINES < 1000 (1000ng/ml); URINE BARBITURATES < 200 (200ng/ml); URINE BENZODIAZEPINES > 200 (200ng/ml); URINE CANNABINOIDS (THC) > 50 (50ng/ml); URINE COCAINE > 300 (300ng/ml); URINE METHADONE < 300 (300ng/ml); URINE OPIATES > 300 (300ng/ml); URINE PHENCYCLIDINE < 25 (25ng/ml)
[2018-08-23 03:54] LABS: ALBUMIN 3.9 gm/dl (3.1-4.5); ALKALINE PHOSPHATASE 87 U/L (45-117); BUN 16 mg/dl (7-24); CHLORIDE 108 mmol/L (98-107); CREATININE 1.23 mg/dL (0.70-1.30); POTASSIUM 3.9 mmol/L (3.5-5.1); SGOT/AST 25 IU/L (3-35); SGPT/ALT 44 U/L (12-78); SODIUM 140 mmol/L (136-145); TOTAL PROTEIN 7.9 gm/dL (6.4-8.2)
[2018-08-23 03:55] LABS: TROPONIN I < 0.015 ng/ml (<0.045)
[2018-08-23 04:30] VITALS: BP 130/90
[2018-08-23 05:30] VITALS: BP 129/87
[2018-09-05] MEDS ORDERED: PAXIL10 MG PO (22:22)
== END 2018-08-23 08:32 | disposition left against medical advice (07) | DRG 918 ==
LOC: ED 03:11 → EDHOLD 05:03 → 5E 05:03
PROVIDERS: Student in an Organized Health Care Education/Training Program
DX: T50.901A Poisoning by unspecified drugs, medicaments and biological substances, accidental (unintentional), initial encounter (principal); F11.23 Opioid dependence with withdrawal; R65.10 Systemic inflammatory response syndrome (SIRS) of non-infectious origin without acute organ dysfunction; D72.810 Lymphocytopenia; E87.8 Other disorders of electrolyte and fluid balance, not elsewhere classified; I10 Essential (primary) hypertension; F43.10 Post-traumatic stress disorder, unspecified; K21.9 Gastro-esophageal reflux disease without esophagitis; Z53.21 Procedure and treatment not carried out due to patient leaving prior to being seen by health care provider; R73.9 Hyperglycemia, unspecified; F14.10 Cocaine abuse, uncomplicated; F12.10 Cannabis abuse, uncomplicated; E66.3 Overweight; F41.1 Generalized anxiety disorder; G89.29 Other chronic pain; F31.9 Bipolar disorder, unspecified; B18.2 Chronic viral hepatitis C; E55.9 Vitamin D deficiency, unspecified; F90.9 Attention-deficit hyperactivity disorder, unspecified type; Z72.0 Tobacco use; Z71.6 Tobacco abuse counseling; Y92.89 Other specified places as the place of occurrence of the external cause; Z87.442 Personal history of urinary calculi; Z86.73 Personal history of transient ischemic attack (TIA), and cerebral infarction without residual deficits; Z84.1 Family history of disorders of kidney and ureter; Z80.0 Family history of malignant neoplasm of digestive organs; Z82.49 Family history of ischemic heart disease and other diseases of the circulatory system; Z88.0 Allergy status to penicillin; Z88.8 Allergy status to other drugs, medicaments and biological substances; Z79.899 Other long term (current) drug therapy; Z68.24 Body mass index [BMI] 24.0-24.9, adult

== ENCOUNTER 2018-11-01 18:15 | Emergency (ER) | payer OTHER ==
[~2018-11-01] VITALS: Ht 177.8 cm; Wt 81.6 kg
--- NOTE | ~2018-11-01 | EKG ---
[place], [place] ELECTROCARDIOGRAM REPORT NAME: BLAYNE HUTCHINSON UNIT #: [id number] ROOM: DOCTOR: EPIPHANY DRAFT REPORT BIRTHDATE: [birth year] [facility] Test Date: 2018-11-01 Test Time: 18:24:01 Pat Name: BLAYNE HUTCHINSON Department: Room: Gender: Door To Door Sales Representative: : 1975 Requested By: TAJ SANTOS Order Number: [id number] Reading MD: Measurements Intervals [place] Rate: 71 P: 84 FL: 127 QRS: 72 QRSD: 79 T: 40 QT: 360 QTc: 392 Interpretive Statements Sinus rhythm Compared to ECG 09/05/2018 18:46:21 No significant changes CM:EKGRPT:ELECTROCARDIOGRAM REPORT 1824 1526 TAJ PENALOZA DRAFT REPORT TAJ SANTOS M.D.
--- NOTE | ~2018-11-01 | EKG ---
[place], [place] ELECTROCARDIOGRAM REPORT NAME: BLAYNE HUTCHINSON UNIT #: [id number] ROOM: DOCTOR: EPIPHANY DRAFT REPORT BIRTHDATE: [birth year] [facility] Test Date: 2018-11-01 Test Time: 18:17:39 Pat Name: BLAYNE HUTCHINSON Department: ER Room: 9 Gender: M Trade Marker: Walt Carmona : 1975 Requested By: TAJ SANTOS Order Number: [id number] Reading MD: Jj Maldonado MD Measurements Intervals [place] Rate: 68 P: 25 MT: 136 QRS: 61 QRSD: 96 T: 57 QT: 388 QTc: 413 Interpretive Statements Sinus rhythm Compared to ECG 09/05/2018 18:46:21 No significant changes Electronically Signed On 11-02-2018 16:25:45 PST by Jj Maldonaod MD CM:EKGRPT:ELECTROCARDIOGRAM REPORT 1625 TAJ PENALOZA DRAFT REPORT TAJ SANTOS M.D.
[~2018-11-01 18:15] MED LIST changes: +XANAX1 MG PO
[2018-11-01 18:31] LABS: BASO % 0.4 % (0.0-1.0); EOS # 0.2 10*3/uL (0.0-0.4); HEMATOCRIT 45.7 % (42.0-52.0); HEMOGLOBIN 14.9 g/dl (14.0-18.0); LYMPH # 3.5 10*3/uL (1.3-4.4); LYMPH % 42.8 % (27.0-41.0); MEAN CELL VOLUME 87.7 fl (80.0-94.0); MEAN CORPUSCULAR HGB 28.6 pg (27.0-31.0); MEAN CORPUSCULAR HGB CONC 32.6 g/dl (33.0-37.0); MEAN PLATELET VOLUME 9.3 fl (9.6-12.3); MONO # 0.6 10*3/uL (0.1-1.0); MONO % 6.9 % (3.0-9.0); NEUT # 3.9 10*3/uL (2.3-7.9); NEUT % 47.7 % (47.0-73.0); PLATELET COUNT AUTOMATED 356 10*3/uL (130-400); RED BLOOD COUNT 5.21 10*6/uL (4.50-5.90); RED CELL DISTRI WIDTH 13.5 % (0-14.5); WHITE BLOOD COUNT 8.1 10*3/uL (4.8-10.8)
[2018-11-01 18:45] LABS: ACT PARTIAL THROMBO TIME 24.6 SECONDS (20.8-31.5)
[2018-11-01 18:46] LABS: ALBUMIN 4.1 gm/dl (3.1-4.5); ALKALINE PHOSPHATASE 109 U/L (45-117); BUN 12 mg/dl (7-24); CHLORIDE 101 mmol/L (98-107); CREATININE 1.11 mg/dL (0.70-1.30); SGOT/AST 35 IU/L (3-35); SGPT/ALT 58 U/L (12-78); SODIUM 139 mmol/L (136-145); TOTAL PROTEIN 8.1 gm/dL (6.4-8.2)
[2018-11-01 18:48] LABS: TROPONIN I < 0.015 ng/ml (<0.045)
[2018-11-01 20:24] VITALS: BP 106/73
== END 2018-11-01 21:20 | disposition home or self-care (01) ==
LOC: ED 18:15
PROVIDERS: Emergency Medicine
DX: R07.89 Other chest pain (principal); N43.3 Hydrocele, unspecified; F41.9 Anxiety disorder, unspecified; F17.210 Nicotine dependence, cigarettes, uncomplicated; Z88.8 Allergy status to other drugs, medicaments and biological substances; Z88.0 Allergy status to penicillin; Z79.899 Other long term (current) drug therapy

== ENCOUNTER 2018-11-06 17:12 | Emergency (ER) | payer OTHER ==
[~2018-11-06] VITALS: Ht 177.8 cm; Wt 83.9 kg
--- NOTE | ~2018-11-06 | EKG ---
[place], [place] ELECTROCARDIOGRAM REPORT NAME: BLAYNE HUTCHINSON UNIT #: [id number] ROOM: DOCTOR: EPIPHANY DRAFT REPORT BIRTHDATE: [birth year] [facility] Test Date: 2018-11-06 Test Time: 17:52:12 Pat Name: BLAYNE HUTCHINSON Department: ER Room: Gender: Chief Psychologist: Walt Carmona : 1975 Requested By: ABE BONILLA PA-C Order Number: [id number] Reading MD: Bam Kearns MD Measurements Intervals [place] Rate: 95 P: 43 OR: 151 QRS: 28 QRSD: 89 T: 56 QT: 340 QTc: 428 Interpretive Statements Sinus rhythm Compared to ECG 11/01/2018 18:17:39 No significant changes Electronically Signed On 11-07-2018 9:37:51 PST by Bam Kearns MD CM:EKGRPT:ELECTROCARDIOGRAM REPORT 1752 0937 ABE BONILLA PA-C EPIPHANY DRAFT REPORT ABE BONILLA PA-C
[2018-11-06 17:15] VITALS: BP 124/74
[2018-11-06 17:56] LABS: BASO % 0.4 % (0.0-1.0); EOS # 0.3 10*3/uL (0.0-0.4); HEMOGLOBIN 12.6 g/dl (14.0-18.0); LYMPH # 2.4 10*3/uL (1.3-4.4); LYMPH % 32.1 % (27.0-41.0); MEAN CORPUSCULAR HGB 28.4 pg (27.0-31.0); MEAN CORPUSCULAR HGB CONC 32.3 g/dl (33.0-37.0); MEAN PLATELET VOLUME 9.6 fl (9.6-12.3); MONO # 0.7 10*3/uL (0.1-1.0); MONO % 8.9 % (3.0-9.0); NEUT # 4.1 10*3/uL (2.3-7.9); NEUT % 54.3 % (47.0-73.0); PLATELET COUNT AUTOMATED 278 10*3/uL (130-400); RED BLOOD COUNT 4.43 10*6/uL (4.50-5.90); RED CELL DISTRI WIDTH 13.3 % (0-14.5); WHITE BLOOD COUNT 7.6 10*3/uL (4.8-10.8)
[2018-11-06 18:12] LABS: ALBUMIN 3.1 gm/dl (3.1-4.5); ALKALINE PHOSPHATASE 89 U/L (45-117); BUN 10 mg/dl (7-24); CHLORIDE 104 mmol/L (98-107); CREATININE 0.98 mg/dL (0.70-1.30); INTERNATIONAL NORM RATIO 0.9 (2.0-3.5); POTASSIUM 4.3 mmol/L (3.5-5.1); SGOT/AST 27 IU/L (3-35); SGPT/ALT 36 U/L (12-78); SODIUM 137 mmol/L (136-145); TOTAL PROTEIN 6.9 gm/dL (6.4-8.2)
[2018-11-06 18:23] LABS: TROPONIN I < 0.015 ng/ml (<0.045)
== END 2018-11-06 19:59 | disposition home or self-care (01) ==
LOC: ED 17:12
PROVIDERS: Physician Assistant
DX: G89.29 Other chronic pain (principal); R07.81 Pleurodynia; L98.9 Disorder of the skin and subcutaneous tissue, unspecified; F17.210 Nicotine dependence, cigarettes, uncomplicated; Z88.0 Allergy status to penicillin; Z88.8 Allergy status to other drugs, medicaments and biological substances; Z79.899 Other long term (current) drug therapy

== ENCOUNTER → 2018-12-17 | Outpatient (CLI) | payer OTHER | END | disposition home or self-care (01) | LOC: RAD 12:28 | DX: R07.81 Pleurodynia (principal) ==

== ENCOUNTER 2019-05-11 18:53 | Emergency (ER) | payer OTHER ==
[~2019-05-11] VITALS: Ht 177.8 cm; Wt 81.6 kg
[2019-05-11 18:56] VITALS: BP 131/88
== END 2019-05-11 19:23 | disposition left against medical advice (07) ==
LOC: ED 18:53
DX: L90.5 Scar conditions and fibrosis of skin (principal); F17.210 Nicotine dependence, cigarettes, uncomplicated; Z53.21 Procedure and treatment not carried out due to patient leaving prior to being seen by health care provider; Z88.0 Allergy status to penicillin; Z88.8 Allergy status to other drugs, medicaments and biological substances; Z79.899 Other long term (current) drug therapy

== ENCOUNTER 2019-09-19 21:31 | Emergency (ER) | payer OTHER ==
[~2019-09-19] VITALS: Ht 177.8 cm; Wt 81.6 kg
[2019-09-19 21:32] VITALS: BP 126/81
== END 2019-09-19 21:44 | disposition left against medical advice (07) ==
LOC: ED 21:31
DX: S01.411A Laceration without foreign body of right cheek and temporomandibular area, initial encounter (principal); Z53.21 Procedure and treatment not carried out due to patient leaving prior to being seen by health care provider; W26.0XXA Contact with knife, initial encounter; Y93.89 Activity, other specified; Y92.89 Other specified places as the place of occurrence of the external cause; Y99.8 Other external cause status

== ENCOUNTER 2019-09-24 13:34 | Inpatient (IN) | payer OTHER ==
[~2019-09-24] VITALS: Ht 177.8 cm; Wt 80.8 kg
[2019-09-24 13:39] VITALS: BP 112/76
[2019-09-24 14:23] LABS: BASO % 0.2 % (0.0-1.0); EOS % 0.1 % (1.0-4.0); HEMATOCRIT 45.5 % (42.0-52.0); HEMOGLOBIN 14.7 g/dl (14.0-18.0); LYMPH # 1.9 10*3/uL (1.3-4.4); LYMPH % 15.7 % (27.0-41.0); MEAN CELL VOLUME 89.4 fl (80.0-94.0); MEAN CORPUSCULAR HGB 28.9 pg (27.0-31.0); MEAN CORPUSCULAR HGB CONC 32.3 g/dl (33.0-37.0); MONO # 0.7 10*3/uL (0.1-1.0); NEUT # 9.3 10*3/uL (2.3-7.9); NEUT % 77.7 % (47.0-73.0); PLATELET COUNT AUTOMATED 259 10*3/uL (130-400); RED BLOOD COUNT 5.09 10*6/uL (4.50-5.90); RED CELL DISTRI WIDTH 14.2 % (0-14.5)
[2019-09-24 14:32] LABS: ACT PARTIAL THROMBO TIME 25.9 SECONDS (20.0-32.1); INTERNATIONAL NORM RATIO 0.9 (2.0-3.5)
--- NOTE | 2019-09-24 14:34 | NUR ---
PT'S POX DROPPED TO 90% WHILE SLEEPING. PT AROUSES EASILY AND POX RETURNS TO BASELINE BUT I DID APPLY CANNULA 3L O2.
[2019-09-24 14:37] VITALS: BP 114/80
[2019-09-24 14:38] LABS: ALBUMIN 3.7 gm/dl (3.1-4.5); ALKALINE PHOSPHATASE 86 U/L (45-117); BUN 26 mg/dl (7-24); CHLORIDE 96 mmol/L (98-107); CREATININE 2.19 mg/dL (0.70-1.30); SGOT/AST 33 IU/L (3-35); SGPT/ALT 60 U/L (12-78); SODIUM 135 mmol/L (136-145); TOTAL PROTEIN 7.3 gm/dL (6.4-8.2)
[2019-09-24 14:39] LABS: ETHYL ALCOHOL < 3.0 mg/dl (<3)
[2019-09-24 14:46] LABS: THYROID STIM HORMONE (HS) 0.769 uIU/ml (0.358-4.75)
[2019-09-24 14:50] LABS: URINE AMPHETAMINES < 1000 (1000ng/ml); URINE BARBITURATES < 200 (200ng/ml); URINE BENZODIAZEPINES > 200 (200ng/ml); URINE CANNABINOIDS (THC) > 50 (50ng/ml); URINE COCAINE > 300 (300ng/ml); URINE METHADONE < 300 (300ng/ml); URINE OPIATES < 300 (300ng/ml)
[2019-09-24 14:51] LABS: URINE PHENCYCLIDINE < 25 (25ng/ml)
[2019-09-24 15:32] LABS: CPK 238 U/L (39-308)
[2019-09-24 15:36] LABS: TROPONIN I < 0.015 ng/ml (<0.045)
[2019-09-24 15:38] VITALS: BP 138/75
--- NOTE | 2019-09-24 15:38 | NUR ---
A 43, admitted to ICCU, under the services of GUILLAUME Lockett DO with a diagnosis of ADRIENNE,DRUG OVERDOSE. Chief complaint is TOOK HEROIN TODAY BUT DENIES SUICIDAL ATTEMPT. Patient arrived via stretcher from ER. Monitor applied. Initial assessment completed. Vital signs taken and recorded. GUILLAUME LOCKETT DO notified of admission to the unit. Orders received. See assessment for past medical history, medications and allergies. Patient and/or family oriented to unit. [facility] ICCU visitation policy reviewed. Clothing/patient valuable form completed. BURDEN
--- NOTE | 2019-09-24 16:10 | NUR ---
U NOTIFIED OF DR YEN CONSULT. THEY WILL NOTIFY HER.
--- NOTE | 2019-09-24 17:55 | NUR ---
MEDICATED PT PER PRN ORDER WITH TYLENOL FOR C/O BECKER AND VISTARIL FOR C/O ANXIETY.
[2019-09-24] MEDS ORDERED: ZANAFLEX2 M1 PO (18:04)
--- NOTE | 2019-09-24 18:07 | NUR ---
PT EATING DINNER. NO DISTRESS NOTED AT THIS TIME.
[2019-09-24 20:00] VITALS: BP 110/68
--- NOTE | 2019-09-24 20:12 | NUR ---
PATIENT SLEEPING, AROUSES EASILY. NO SIGNS OR SYMPTOMS OF DISCOMFORT. PULSE OX 98% ON 2L NC. NO COMPLAINTS AT THIS TIME. WILL CONTINUE TO MONITOR.
--- NOTE | 2019-09-24 20:59 | NUR ---
[facility] CALLED AND REQUESTED TO BE NOTIFIED WHEN THE PATIENT IS DISCHARGED. WILL PASS ALONG IN REPORT.
--- NOTE | 2019-09-24 21:47 | NUR ---
PATIENT COMPLAINED OF ABDOMINAL PAIN, RESTLESS LEGS, MUSCLE ACHES, AND INSOMNIA. BENTYL, REQUIP, ROBAXIN, RESTORIL GIVEN PER PATIENT REQUEST. WILL ASSESS EFFECTIVENESS OF PRN MEDICATIONS.
--- NOTE | 2019-09-24 22:50 | NUR ---
PRN MEDICATIONS EFFECTIVE. PATIENT RESTING IN BED. NO SIGNS OR SYMPTOMS OF DISTRESS OR DISCOMFORT. WILL CONTINUE TO MONITOR.
[2019-09-25] VITALS: BP 120/70
--- NOTE | 2019-09-25 00:17 | NUR ---
IN TO ASSESS PT. DROWSY BUT EASILY AWAKEN. RESTING IN BED, NO VOICED COMPLAINTS AT THIS TIME. 2L NC PULSE OX 96%, HR 101, BLOOD PRESSURE 120/80. WILL CONTINUE TO MONITOR.
--- NOTE | 2019-09-25 00:28 | NUR ---
24 HOUR CHART CHECK COMPLETE.
--- NOTE | 2019-09-25 00:55 | NUR ---
TRAZODONE ADMINISTERED AT THIS TIME.
[2019-09-25 04:00] VITALS: BP 107/71
[2019-09-25 05:01] LABS: BASO % 0.3 % (0.0-1.0); EOS # 0.1 10*3/uL (0.0-0.4); EOS % 0.6 % (1.0-4.0); HEMATOCRIT 41.6 % (42.0-52.0); HEMOGLOBIN 13.3 g/dl (14.0-18.0); LYMPH # 2.2 10*3/uL (1.3-4.4); LYMPH % 19.1 % (27.0-41.0); MEAN CORPUSCULAR HGB 28.8 pg (27.0-31.0); MEAN PLATELET VOLUME 9.7 fl (9.6-12.3); MONO # 0.7 10*3/uL (0.1-1.0); MONO % 5.9 % (3.0-9.0); NEUT # 8.6 10*3/uL (2.3-7.9); NEUT % 73.9 % (47.0-73.0); PLATELET COUNT AUTOMATED 221 10*3/uL (130-400); RED BLOOD COUNT 4.62 10*6/uL (4.50-5.90); RED CELL DISTRI WIDTH 14.2 % (0-14.5); WHITE BLOOD COUNT 11.6 10*3/uL (4.8-10.8)
[2019-09-25 05:11] LABS: ACT PARTIAL THROMBO TIME 29.3 SECONDS (20.0-32.1); INTERNATIONAL NORM RATIO 0.9 (2.0-3.5)
--- NOTE | 2019-09-25 05:14 | NUR ---
PT MEDICATED WITH VISTARIL 50MG PO FOR C/O ANXIETY.
[2019-09-25 05:17] LABS: ALBUMIN 2.9 gm/dl (3.1-4.5); ALKALINE PHOSPHATASE 69 U/L (45-117); CHLORIDE 104 mmol/L (98-107); CHOLESTEROL 126 mg/dL (<200); CREATININE 1.08 mg/dL (0.70-1.30); HDL CHOLESTEROL 47 mg/dl (40-60); LDL CHOLESTEROL 68 mg/dL (9-159); PHOSPHOROUS 2.4 mg/dL (2.5-4.9); POTASSIUM 3.8 mmol/L (3.5-5.1); SGOT/AST 30 IU/L (3-35); SGPT/ALT 45 U/L (12-78); SODIUM 139 mmol/L (136-145); TOTAL PROTEIN 6.1 gm/dL (6.4-8.2); TRIGLYCERIDES 56 mg/dl (<150); VLDL CHOLESTEROL 11 mg/dL (6-40)
[2019-09-25 05:22] LABS: THYROID STIM HORMONE (HS) 0.315 uIU/ml (0.358-4.75)
[2019-09-25 05:26] LABS: BUN 12 mg/dl (7-24)
[2019-09-25 06:59] LABS: VITAMIN D, 25-HYDROXY 44.4 ng/mL (30-100)
--- NOTE | 2019-09-25 07:28 | NUR ---
PT HAS BEEN RESTING QUIETLY SINCE BEING MEDICATED WITH VISTARIL FOR ANXIETY.
[2019-09-25 08:00] VITALS: BP 103/65
--- NOTE | 2019-09-25 08:45 | NUR ---
[place] STAFF SPOKE WITH PATIENT ABOUT [facility]. PATIENT MEETS [facility]. [place] STAFF WILL FOLLOW UP WITH PATIENT WITH REFERRAL OPTIONS. AUTUMN SALEEM B.A. 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
--- NOTE | 2019-09-25 09:46 | NUR ---
HAMMER SHOP SUPERVISOR SHASHI SimeonNOTIFIED THAT PT IS DOWNGRADED TO UNMONITORED PT.
--- NOTE | 2019-09-25 10:04 | NUR ---
Patient signed out AMA. Patient encouraged to stay and advised of possible consequences of premature discharge. Physician DR GUZMAN and want ad supervisor SHASHI Ambrose notified. Patient instructed what to do regarding care post-departure from the hospital; emergency phone numbers provided. Patent was accompanied by [facility] POLICE. VALENTE COLLINS
== END 2019-09-25 10:04 | disposition left against medical advice (07) | DRG 817 ==
LOC: ED 13:34 → EDHOLD 15:01 → ICCU 15:31
PROVIDERS: Emergency Medicine; Internal Medicine; ADMIT Family Medicine
DX: T40.4X2A Poisoning by other synthetic narcotics, intentional self-harm, initial encounter (principal); N17.0 Acute kidney failure with tubular necrosis; R65.11 Systemic inflammatory response syndrome (SIRS) of non-infectious origin with acute organ dysfunction; E87.1 Hypo-osmolality and hyponatremia; F19.10 Other psychoactive substance abuse, uncomplicated; T14.91XA Suicide attempt, initial encounter; R73.9 Hyperglycemia, unspecified; F63.81 Intermittent explosive disorder; I10 Essential (primary) hypertension; F43.10 Post-traumatic stress disorder, unspecified; K21.9 Gastro-esophageal reflux disease without esophagitis; F41.1 Generalized anxiety disorder; E55.9 Vitamin D deficiency, unspecified; B19.20 Unspecified viral hepatitis C without hepatic coma; D72.829 Elevated white blood cell count, unspecified; F90.9 Attention-deficit hyperactivity disorder, unspecified type; F13.10 Sedative, hypnotic or anxiolytic abuse, uncomplicated; G89.29 Other chronic pain; Z53.29 Procedure and treatment not carried out because of patient's decision for other reasons; F14.10 Cocaine abuse, uncomplicated; F32.9 Major depressive disorder, single episode, unspecified; Z87.828 Personal history of other (healed) physical injury and trauma; Z72.0 Tobacco use; Z88.0 Allergy status to penicillin; Z88.8 Allergy status to other drugs, medicaments and biological substances; Z86.73 Personal history of transient ischemic attack (TIA), and cerebral infarction without residual deficits; Z80.0 Family history of malignant neoplasm of digestive organs; Z84.1 Family history of disorders of kidney and ureter; Y92.89 Other specified places as the place of occurrence of the external cause; Z79.899 Other long term (current) drug therapy

== ENCOUNTER 2019-10-25 17:57 | Emergency (ER) | payer OTHER ==
[~2019-10-25] VITALS: Ht 177.8 cm; Wt 81.6 kg
[~2019-10-25 17:57] MED LIST changes: +ZANAFLEX2 M1 PO
[2019-10-25 17:58] VITALS: BP 122/84
[2019-10-25] MEDS ORDERED: IBUPROFEN600 MG PO (20:31)
== END 2019-10-25 20:40 | disposition home or self-care (01) ==
LOC: ED 17:57
DX: M94.0 Chondrocostal junction syndrome [Tietze] (principal); F17.210 Nicotine dependence, cigarettes, uncomplicated; Z88.0 Allergy status to penicillin; Z88.8 Allergy status to other drugs, medicaments and biological substances; Z79.899 Other long term (current) drug therapy

== ENCOUNTER 2019-11-18 21:54 | Emergency (ER) | payer OTHER ==
[~2019-11-18] VITALS: Ht 177.8 cm; Wt 79.4 kg
[~2019-11-18 21:54] MED LIST changes: +IBUPROFEN600 MG PO
[2019-11-18 22:01] VITALS: BP 130/90
[2019-11-18] MEDS ORDERED: CLONIDINE0.2 MG PO (22:18)
[2019-11-19] MEDS ORDERED: OMEPRAZOLE40 MG PO (15:28)
[2019-11-19] MEDS ORDERED: BUPRENORPHINE HY8 MG SL (15:29)
== END 2019-11-18 22:20 | disposition home or self-care (01) ==
LOC: ED 21:54
DX: I10 Essential (primary) hypertension (principal); K21.9 Gastro-esophageal reflux disease without esophagitis; F17.210 Nicotine dependence, cigarettes, uncomplicated; Z79.899 Other long term (current) drug therapy; Z88.0 Allergy status to penicillin; Z88.8 Allergy status to other drugs, medicaments and biological substances; Z86.73 Personal history of transient ischemic attack (TIA), and cerebral infarction without residual deficits

== ENCOUNTER 2019-11-19 13:25 | Inpatient (IN) | payer OTHER ==
[~2019-11-19] VITALS: Ht 154.9 cm; Wt 78.1 kg
[~2019-11-19 13:25] MED LIST changes: +CLONIDINE0.2 MG PO
[2019-11-19 14:41] VITALS: BP 105/74
[2019-11-19] MEDS ORDERED: OMEPRAZOLE40 MG PO (15:28)
[2019-11-19] MEDS ORDERED: BUPRENORPHINE HY8 MG SL (15:29)
[2019-11-19 16:00] VITALS: BP 105/74
[2019-11-19 16:11] LABS: BASO # 0.1 10*3/uL (0.0-0.1); BASO % 0.8 % (0.0-1.0); EOS # 0.1 10*3/uL (0.0-0.4); EOS % 1.9 % (1.0-4.0); HEMATOCRIT 44.1 % (42.0-52.0); HEMOGLOBIN 14.4 g/dl (14.0-18.0); LYMPH # 2.5 10*3/uL (1.3-4.4); LYMPH % 39.6 % (27.0-41.0); MEAN CELL VOLUME 87.5 fl (80.0-94.0); MEAN CORPUSCULAR HGB 28.6 pg (27.0-31.0); MEAN CORPUSCULAR HGB CONC 32.7 g/dl (33.0-37.0); MEAN PLATELET VOLUME 10.3 fl (9.6-12.3); MONO # 0.4 10*3/uL (0.1-1.0); MONO % 6.5 % (3.0-9.0); NEUT # 3.2 10*3/uL (2.3-7.9); PLATELET COUNT AUTOMATED 334 10*3/uL (130-400); RED BLOOD COUNT 5.04 10*6/uL (4.50-5.90); RED CELL DISTRI WIDTH 13.5 % (0-14.5); WHITE BLOOD COUNT 6.3 10*3/uL (4.8-10.8)
[2019-11-19 16:28] LABS: ALBUMIN 3.8 gm/dl (3.1-4.5); ALKALINE PHOSPHATASE 71 U/L (45-117); BUN 9 mg/dl (7-24); CHLORIDE 107 mmol/L (98-107); CREATININE 1.07 mg/dL (0.70-1.30); POTASSIUM 4.4 mmol/L (3.5-5.1); SGOT/AST 27 IU/L (3-35); SODIUM 140 mmol/L (136-145); TOTAL PROTEIN 7.2 gm/dL (6.4-8.2)
[2019-11-19 16:34] LABS: SGPT/ALT 51 U/L (12-78)
[2019-11-19 16:51] LABS: ETHYL ALCOHOL < 3.0 mg/dl (<3)
[2019-11-19 17:21] LABS: BILIRUBIN NEGATIVE (NEGATIVE); CLARITY CLEAR (CLEAR); COLOR YELLOW (YELLOW); GLUCOSE NEGATIVE (NEGATIVE); KETONE NEGATIVE (NEGATIVE)
[2019-11-19 17:22] LABS: BLOOD NEGATIVE (NEGATIVE); LEUKO ESTERASE NEGATIVE (NEGATIVE); NITRITE NEGATIVE (NEGATIVE); PH 6.5 (5.0-9.0); UROBILINOGEN 0.2 E.U./dl (0.2-1.0)
[2019-11-19 17:23] LABS: URINE AMPHETAMINES > 1000 (1000ng/ml); URINE BARBITURATES < 200 (200ng/ml); URINE BENZODIAZEPINES > 200 (200ng/ml); URINE CANNABINOIDS (THC) > 50 (50ng/ml); URINE COCAINE > 300 (300ng/ml); URINE METHADONE < 300 (300ng/ml); URINE OPIATES < 300 (300ng/ml)
[2019-11-19 17:24] LABS: BACTERIA TRACE; EPITHELIAL CELLS 0-2; MUCOUS 2+; RBC 0-2 rbc/hpf (0-2)
[2019-11-19 17:29] LABS: URINE PHENCYCLIDINE < 25 (25ng/ml)
[2019-11-19 20:00] VITALS: BP 135/87
[2019-11-19 21:10] VITALS: BP 133/85
[2019-11-20] VITALS (7 sets, daily range): BP systolic 107–130; BP diastolic 67–91
[2019-11-21] VITALS: BP 121/85
[2019-11-21 08:00] VITALS: BP 116/77
[2019-11-21 12:00] VITALS: BP 144/79
[2019-11-21] MEDS ORDERED: CHLORDIAZEPOXID10 M2 PO (14:48)
== END 2019-11-21 16:00 | disposition home or self-care (01) | DRG 773 ==
LOC: 4E 13:25 → 5E 13:25 → 4E 14:53 → ICCU 21:49 → 5E 11-20 11:08
PROVIDERS: Student in an Organized Health Care Education/Training Program; ADMIT Internal Medicine
DX: F11.23 Opioid dependence with withdrawal (principal); F41.9 Anxiety disorder, unspecified; G25.81 Restless legs syndrome; F43.10 Post-traumatic stress disorder, unspecified; K21.9 Gastro-esophageal reflux disease without esophagitis; I10 Essential (primary) hypertension; F41.1 Generalized anxiety disorder; F31.9 Bipolar disorder, unspecified; B19.20 Unspecified viral hepatitis C without hepatic coma; F13.10 Sedative, hypnotic or anxiolytic abuse, uncomplicated; F19.10 Other psychoactive substance abuse, uncomplicated; F14.10 Cocaine abuse, uncomplicated; F90.9 Attention-deficit hyperactivity disorder, unspecified type; F63.81 Intermittent explosive disorder; F15.10 Other stimulant abuse, uncomplicated; F17.210 Nicotine dependence, cigarettes, uncomplicated; Z71.6 Tobacco abuse counseling; T40.4X Poisoning by, adverse effect of and underdosing of other synthetic narcotics; Z82.49 Family history of ischemic heart disease and other diseases of the circulatory system; Z84.1 Family history of disorders of kidney and ureter; Z80.0 Family history of malignant neoplasm of digestive organs; Z88.0 Allergy status to penicillin; Z68.32 Body mass index [BMI] 32.0-32.9, adult; Z88.8 Allergy status to other drugs, medicaments and biological substances; Z79.899 Other long term (current) drug therapy; Z81.8 Family history of other mental and behavioral disorders

== ENCOUNTER 2019-11-24 13:43 | Inpatient (IN) | payer OTHER ==
[~2019-11-24] VITALS: Ht 177.8 cm; Wt 81.6 kg
[~2019-11-24 13:43] MED LIST changes: +BUPRENORPHINE HY8 MG SL; +CHLORDIAZEPOXID10 M2 PO
[2019-11-24 13:45] VITALS: BP 137/72
[2019-11-24 14:18] LABS: BASO # 0.1 10*3/uL (0.0-0.1); BASO % 0.5 % (0.0-1.0); EOS # 0.2 10*3/uL (0.0-0.4); HEMATOCRIT 41.5 % (42.0-52.0); HEMOGLOBIN 13.4 g/dl (14.0-18.0); LYMPH # 1.9 10*3/uL (1.3-4.4); LYMPH % 17.8 % (27.0-41.0); MEAN CELL VOLUME 89.6 fl (80.0-94.0); MEAN CORPUSCULAR HGB 28.9 pg (27.0-31.0); MEAN CORPUSCULAR HGB CONC 32.3 g/dl (33.0-37.0); MEAN PLATELET VOLUME 9.9 fl (9.6-12.3); MONO # 0.6 10*3/uL (0.1-1.0); MONO % 5.4 % (3.0-9.0); NEUT # 7.8 10*3/uL (2.3-7.9); PLATELET COUNT AUTOMATED 307 10*3/uL (130-400); RED BLOOD COUNT 4.63 10*6/uL (4.50-5.90); RED CELL DISTRI WIDTH 13.6 % (0-14.5); WHITE BLOOD COUNT 10.5 10*3/uL (4.8-10.8)
[2019-11-24 14:28] LABS: ACT PARTIAL THROMBO TIME 27.1 SECONDS (20.0-32.1); INTERNATIONAL NORM RATIO 0.9 (2.0-3.5)
[2019-11-24 14:33] LABS: ALBUMIN 3.7 gm/dl (3.1-4.5); ALKALINE PHOSPHATASE 71 U/L (45-117); BUN 12 mg/dl (7-24); CHLORIDE 104 mmol/L (98-107); CREATININE 1.37 mg/dL (0.70-1.30); POTASSIUM 4.3 mmol/L (3.5-5.1); SGOT/AST 25 IU/L (3-35); SGPT/ALT 42 U/L (12-78); SODIUM 137 mmol/L (136-145); TOTAL PROTEIN 6.7 gm/dL (6.4-8.2)
[2019-11-24 14:34] LABS: CPK 102 U/L (39-308)
[2019-11-24 14:35] LABS: ETHYL ALCOHOL < 3.0 mg/dl (<3); TROPONIN I < 0.015 ng/ml (<0.045)
[2019-11-24 14:56] LABS: URINE AMPHETAMINES < 1000 (1000ng/ml); URINE BARBITURATES < 200 (200ng/ml); URINE BENZODIAZEPINES > 200 (200ng/ml); URINE CANNABINOIDS (THC) > 50 (50ng/ml); URINE COCAINE > 300 (300ng/ml); URINE METHADONE < 300 (300ng/ml); URINE OPIATES < 300 (300ng/ml)
[2019-11-24 14:58] LABS: URINE PHENCYCLIDINE < 25 (25ng/ml)
[2019-11-24 15:00] VITALS: BP 122/76
[2019-11-24 15:02] LABS: BILIRUBIN NEGATIVE (NEGATIVE); BLOOD NEGATIVE (NEGATIVE); CLARITY CLEAR (CLEAR); COLOR YELLOW (YELLOW); GLUCOSE NEGATIVE (NEGATIVE); KETONE NEGATIVE (NEGATIVE); LEUKO ESTERASE NEGATIVE (NEGATIVE); NITRITE NEGATIVE (NEGATIVE); PH 6.5 (5.0-9.0); UROBILINOGEN 0.2 E.U./dl (0.2-1.0)
[2019-11-24 15:03] LABS: EPITHELIAL CELLS 0-2; WBC 0-2 wbc/hpf (0-5)
[2019-11-24] MEDS ORDERED: CATAPRES0.2 M1 PO (15:50)
[2019-11-24] MEDS ORDERED: BUPRENORPHINE HY8 MG SL (15:51)
[2019-11-24 16:00] VITALS: BP 106/75
[2019-11-24 17:00] VITALS: BP 116/83
[2019-11-24 20:00] VITALS: BP 119/82
== END 2019-11-24 20:14 | disposition left against medical advice (07) | DRG 817 ==
LOC: ED 13:43 → EDHOLD 15:18 → ICCU 15:36
PROVIDERS: Emergency Medicine; ADMIT Internal Medicine
DX: T50.7X2A Poisoning by analeptics and opioid receptor antagonists, intentional self-harm, initial encounter (principal); N17.0 Acute kidney failure with tubular necrosis; F43.10 Post-traumatic stress disorder, unspecified; K21.9 Gastro-esophageal reflux disease without esophagitis; I10 Essential (primary) hypertension; F12.10 Cannabis abuse, uncomplicated; F13.10 Sedative, hypnotic or anxiolytic abuse, uncomplicated; F14.10 Cocaine abuse, uncomplicated; E73.9 Lactose intolerance, unspecified; Z53.29 Procedure and treatment not carried out because of patient's decision for other reasons; D64.9 Anemia, unspecified; E83.41 Hypermagnesemia; F41.1 Generalized anxiety disorder; F31.9 Bipolar disorder, unspecified; B19.20 Unspecified viral hepatitis C without hepatic coma; F90.9 Attention-deficit hyperactivity disorder, unspecified type; G25.81 Restless legs syndrome; F63.81 Intermittent explosive disorder; Y92.89 Other specified places as the place of occurrence of the external cause; Z82.49 Family history of ischemic heart disease and other diseases of the circulatory system; Z80.0 Family history of malignant neoplasm of digestive organs; Z88.0 Allergy status to penicillin; Z88.8 Allergy status to other drugs, medicaments and biological substances

== ENCOUNTER 2019-12-02 18:28 | Emergency (ER) | payer OTHER ==
[~2019-12-02] VITALS: Ht 177.8 cm; Wt 79.4 kg
[2019-12-02 19:18] LABS: BASO % 0.7 % (0.0-1.0); EOS # 0.2 10*3/uL (0.0-0.4); EOS % 3.9 % (1.0-4.0); HEMATOCRIT 41.7 % (42.0-52.0); HEMOGLOBIN 13.2 g/dl (14.0-18.0); LYMPH # 2.9 10*3/uL (1.3-4.4); LYMPH % 48.1 % (27.0-41.0); MEAN CELL VOLUME 91.6 fl (80.0-94.0); MEAN CORPUSCULAR HGB CONC 31.7 g/dl (33.0-37.0); MEAN PLATELET VOLUME 9.5 fl (9.6-12.3); MONO # 0.3 10*3/uL (0.1-1.0); MONO % 5.2 % (3.0-9.0); NEUT # 2.6 10*3/uL (2.3-7.9); NEUT % 41.8 % (47.0-73.0); PLATELET COUNT AUTOMATED 303 10*3/uL (130-400); RED BLOOD COUNT 4.55 10*6/uL (4.50-5.90); RED CELL DISTRI WIDTH 13.6 % (0-14.5); WHITE BLOOD COUNT 6.1 10*3/uL (4.8-10.8)
[2019-12-02 19:44] LABS: ACETAMINOPHEN (TYLENOL) < 5.0 ug/ml (10-30); ALBUMIN 3.5 gm/dl (3.1-4.5); ALKALINE PHOSPHATASE 68 U/L (45-117); BUN 8 mg/dl (7-24); CHLORIDE 109 mmol/L (98-107); POTASSIUM 4.1 mmol/L (3.5-5.1); SGOT/AST 28 IU/L (3-35); SGPT/ALT 54 U/L (12-78); SODIUM 142 mmol/L (136-145); TOTAL PROTEIN 6.6 gm/dL (6.4-8.2)
[2019-12-02 19:52] LABS: THYROID STIM HORMONE (HS) 0.771 uIU/ml (0.358-4.75)
[2019-12-02 21:10] LABS: URINE AMPHETAMINES > 1000 (1000ng/ml); URINE BARBITURATES < 200 (200ng/ml); URINE BENZODIAZEPINES > 200 (200ng/ml); URINE CANNABINOIDS (THC) > 50 (50ng/ml); URINE COCAINE > 300 (300ng/ml); URINE METHADONE < 300 (300ng/ml); URINE OPIATES < 300 (300ng/ml)
[2019-12-02 21:14] LABS: URINE PHENCYCLIDINE < 25 (25ng/ml)
[2019-12-02 21:17] LABS: COLOR YELLOW (YELLOW)
[2019-12-02 21:18] LABS: BACTERIA TRACE; BILIRUBIN NEGATIVE (NEGATIVE); BLOOD NEGATIVE (NEGATIVE); CLARITY CLEAR (CLEAR); EPITHELIAL CELLS 0-2; GLUCOSE NEGATIVE (NEGATIVE); KETONE NEGATIVE (NEGATIVE); LEUKO ESTERASE NEGATIVE (NEGATIVE); NITRITE NEGATIVE (NEGATIVE); UROBILINOGEN 0.2 E.U./dl (0.2-1.0); WBC 0-2 wbc/hpf (0-5)
== END 2019-12-02 21:19 | disposition home or self-care (01) ==
LOC: ED 18:28
PROVIDERS: Emergency Medicine
DX: F31.9 Bipolar disorder, unspecified (principal); K21.9 Gastro-esophageal reflux disease without esophagitis; I10 Essential (primary) hypertension; F15.10 Other stimulant abuse, uncomplicated; F14.10 Cocaine abuse, uncomplicated; F17.200 Nicotine dependence, unspecified, uncomplicated; Z88.8 Allergy status to other drugs, medicaments and biological substances; Z88.0 Allergy status to penicillin; Z79.899 Other long term (current) drug therapy

== ENCOUNTER 2019-12-10 21:53 | Emergency (ER) | payer OTHER ==
[~2019-12-10] VITALS: Ht 177.8 cm; Wt 79.4 kg
[2019-12-10 22:05] VITALS: BP 132/66
== END 2019-12-10 23:00 | disposition left against medical advice (07) ==
LOC: ED 21:53
DX: Z00.8 Encounter for other general examination (principal); Z53.21 Procedure and treatment not carried out due to patient leaving prior to being seen by health care provider

== ENCOUNTER 2020-01-26 20:49 | Emergency (ER) | payer OTHER ==
[~2020-01-26] VITALS: Ht 177.8 cm; Wt 77.1 kg
[2020-01-26 20:59] VITALS: BP 134/80
== END 2020-01-26 21:45 | disposition left against medical advice (07) ==
LOC: ED 20:49
DX: S00.01XA Abrasion of scalp, initial encounter (principal); I10 Essential (primary) hypertension; F31.9 Bipolar disorder, unspecified; K21.9 Gastro-esophageal reflux disease without esophagitis; Z76.0 Encounter for issue of repeat prescription; F14.10 Cocaine abuse, uncomplicated; F15.10 Other stimulant abuse, uncomplicated; F17.200 Nicotine dependence, unspecified, uncomplicated; Z88.8 Allergy status to other drugs, medicaments and biological substances; Z88.0 Allergy status to penicillin; Z79.899 Other long term (current) drug therapy; W01.10XA Fall on same level from slipping, tripping and stumbling with subsequent striking against unspecified object, initial encounter; Y93.89 Activity, other specified; Y92.89 Other specified places as the place of occurrence of the external cause; Y99.8 Other external cause status

== ENCOUNTER 2020-02-19 11:22 | Emergency (ER) | payer OTHER ==
[~2020-02-19] VITALS: Ht 157.4 cm; Wt 72.6 kg
[2020-02-19 11:32] VITALS: BP 141/95
[2020-02-19] MEDS ORDERED: VISTARIL50 MG PO (12:36)
[2020-02-19] MEDS ORDERED: CLONIDINE0.2 MG PO (12:36)
== END 2020-02-19 12:41 | disposition home or self-care (01) ==
LOC: ED 11:22
DX: S09.90XA Unspecified injury of head, initial encounter (principal); F41.9 Anxiety disorder, unspecified; F31.9 Bipolar disorder, unspecified; Z88.0 Allergy status to penicillin; Z88.8 Allergy status to other drugs, medicaments and biological substances; Z79.899 Other long term (current) drug therapy; Z76.0 Encounter for issue of repeat prescription; X58.XXXA Exposure to other specified factors, initial encounter; Y93.89 Activity, other specified; Y92.89 Other specified places as the place of occurrence of the external cause; Y99.8 Other external cause status

== ENCOUNTER 2020-02-27 09:17 | Emergency (ER) | payer OTHER ==
[~2020-02-27] VITALS: Ht 157.4 cm; Wt 77.1 kg
[2020-02-27 09:17] VITALS: BP 137/87
== END 2020-02-27 10:03 ==
LOC: ED 09:17
DX: T20.26XA Burn of second degree of forehead and cheek, initial encounter (principal); F41.9 Anxiety disorder, unspecified; F31.9 Bipolar disorder, unspecified; Z88.8 Allergy status to other drugs, medicaments and biological substances; Z88.0 Allergy status to penicillin; Z79.899 Other long term (current) drug therapy; Z98.890 Other specified postprocedural states; Z87.891 Personal history of nicotine dependence; X08.8XXA Exposure to other specified smoke, fire and flames, initial encounter; Y93.89 Activity, other specified; Y92.098 Other place in other non-institutional residence as the place of occurrence of the external cause; Y99.8 Other external cause status

== ENCOUNTER 2020-03-19 01:54 | Emergency (ER) | payer OTHER ==
[~2020-03-19] VITALS: Ht 177.8 cm; Wt 68.0 kg
[2020-03-19 01:55] VITALS: BP 144/99
[2020-03-19 02:52] LABS: BASO % 0.6 % (0.0-1.0); EOS # 0.1 10*3/uL (0.0-0.4); EOS % 1.7 % (1.0-4.0); HEMATOCRIT 39.3 % (42.0-52.0); LYMPH # 2.3 10*3/uL (1.3-4.4); LYMPH % 35.4 % (27.0-41.0); MEAN CELL VOLUME 87.9 fl (80.0-94.0); MEAN CORPUSCULAR HGB 29.1 pg (27.0-31.0); MEAN CORPUSCULAR HGB CONC 33.1 g/dl (33.0-37.0); MEAN PLATELET VOLUME 9.9 fl (9.6-12.3); MONO # 0.6 10*3/uL (0.1-1.0); MONO % 8.8 % (3.0-9.0); NEUT # 3.4 10*3/uL (2.3-7.9); NEUT % 53.3 % (47.0-73.0); PLATELET COUNT AUTOMATED 305 10*3/uL (130-400); RED BLOOD COUNT 4.47 10*6/uL (4.50-5.90); RED CELL DISTRI WIDTH 13.5 % (0-14.5); WHITE BLOOD COUNT 6.4 10*3/uL (4.8-10.8)
[2020-03-19 03:09] LABS: ALBUMIN 3.6 gm/dl (3.1-4.5); ALKALINE PHOSPHATASE 69 U/L (45-117); BUN 12 mg/dl (7-24); CHLORIDE 107 mmol/L (98-107); CREATININE 0.87 mg/dL (0.70-1.30); POTASSIUM 3.8 mmol/L (3.5-5.1); SGOT/AST 44 IU/L (3-35); SGPT/ALT 50 U/L (12-78); SODIUM 140 mmol/L (136-145); TOTAL PROTEIN 6.9 gm/dL (6.4-8.2)
[2020-03-19 03:12] LABS: TROPONIN I < 0.015 ng/ml (<0.045)
== END 2020-03-19 04:06 | disposition left against medical advice (07) ==
LOC: ED 01:54
PROVIDERS: Emergency Medicine
DX: Z76.0 Encounter for issue of repeat prescription (principal); F41.9 Anxiety disorder, unspecified; F31.9 Bipolar disorder, unspecified; K21.9 Gastro-esophageal reflux disease without esophagitis; F17.200 Nicotine dependence, unspecified, uncomplicated; Z88.0 Allergy status to penicillin; Z88.8 Allergy status to other drugs, medicaments and biological substances; Z79.899 Other long term (current) drug therapy; Z79.2 Long term (current) use of antibiotics

== ENCOUNTER 2020-03-21 03:45 | Emergency (ER) | payer OTHER ==
[2020-03-21 05:14] VITALS: BP 121/87
== END 2020-03-21 05:35 | disposition home or self-care (01) ==
LOC: ED 03:45
DX: T40.1X1A Poisoning by heroin, accidental (unintentional), initial encounter (principal); Z88.8 Allergy status to other drugs, medicaments and biological substances; Z88.0 Allergy status to penicillin; Z79.899 Other long term (current) drug therapy; Z79.2 Long term (current) use of antibiotics; Y92.89 Other specified places as the place of occurrence of the external cause

== ENCOUNTER 2020-04-07 18:06 | Emergency (ER) | payer OTHER ==
[2020-04-07 18:08] VITALS: BP 136/94
== END 2020-04-07 19:10 | disposition home or self-care (01) ==
LOC: ED 18:06
DX: F11.10 Opioid abuse, uncomplicated (principal); F15.10 Other stimulant abuse, uncomplicated; F14.10 Cocaine abuse, uncomplicated; F17.200 Nicotine dependence, unspecified, uncomplicated; Z88.8 Allergy status to other drugs, medicaments and biological substances; Z88.0 Allergy status to penicillin; Z79.899 Other long term (current) drug therapy

== ENCOUNTER 2020-05-19 02:55 | Emergency (ER) | payer OTHER ==
[~2020-05-19] VITALS: Wt 80.7 kg
[2020-05-19 04:51] VITALS: BP 114/80
== END 2020-05-19 05:00 | disposition home or self-care (01) ==
LOC: ED 02:55
DX: F19.10 Other psychoactive substance abuse, uncomplicated (principal); F41.9 Anxiety disorder, unspecified; F31.9 Bipolar disorder, unspecified; F17.200 Nicotine dependence, unspecified, uncomplicated; Z79.899 Other long term (current) drug therapy

== ENCOUNTER 2020-08-02 02:02 | Emergency (ER) | payer OTHER ==
[~2020-08-02] VITALS: Ht 177.8 cm; Wt 74.8 kg
[2020-08-02] MEDS ORDERED: CLONIDINE HCL0.1 MG PO (02:23)
[2020-08-02 02:30] VITALS: BP 132/90
== END 2020-08-02 02:52 | disposition home or self-care (01) ==
LOC: ED 02:02
DX: I10 Essential (primary) hypertension (principal); Z88.0 Allergy status to penicillin; Z88.8 Allergy status to other drugs, medicaments and biological substances; Z79.899 Other long term (current) drug therapy

== ENCOUNTER 2020-08-27 08:30 | Inpatient (IN) | payer OTHER ==
[~2020-08-27] VITALS: Ht 177.8 cm; Wt 72.2 kg
[~2020-08-27 08:30] MED LIST changes: +CLONIDINE HCL0.1 MG PO
[2020-08-27 10:01] LABS: URINE AMPHETAMINES > 1000 (1000ng/ml); URINE BARBITURATES < 200 (200ng/ml); URINE BENZODIAZEPINES > 200 (200ng/ml); URINE CANNABINOIDS (THC) > 50 (50ng/ml); URINE COCAINE < 300 (300ng/ml); URINE METHADONE < 300 (300ng/ml); URINE OPIATES < 300 (300ng/ml)
[2020-08-27 10:03] LABS: URINE PHENCYCLIDINE < 25 (25ng/ml)
[2020-08-27 11:00] VITALS: BP 139/87
[2020-08-27 11:13] LABS: BASO % 0.1 % (0.0-1.0); EOS # 0.1 10*3/uL (0.0-0.4); EOS % 0.8 % (1.0-4.0); HEMATOCRIT 43.7 % (42.0-52.0); LYMPH # 1.7 10*3/uL (1.3-4.4); LYMPH % 23.5 % (27.0-41.0); MEAN CELL VOLUME 87.9 fl (80.0-94.0); MEAN CORPUSCULAR HGB 28.2 pg (27.0-31.0); MEAN PLATELET VOLUME 9.6 fl (9.6-12.3); MONO # 0.6 10*3/uL (0.1-1.0); MONO % 8.6 % (3.0-9.0); NEUT # 4.7 10*3/uL (2.3-7.9); NEUT % 66.7 % (47.0-73.0); PLATELET COUNT AUTOMATED 321 10*3/uL (130-400); RED BLOOD COUNT 4.97 10*6/uL (4.50-5.90); RED CELL DISTRI WIDTH 13.2 % (0-14.5); WHITE BLOOD COUNT 7.1 10*3/uL (4.8-10.8)
[2020-08-27 11:23] LABS: INTERNATIONAL NORM RATIO 0.9 (2.0-3.5)
[2020-08-27 11:27] LABS: ALBUMIN 3.7 gm/dl (3.1-4.5); ALKALINE PHOSPHATASE 70 U/L (45-117); BUN 12 mg/dl (7-24); CHLORIDE 103 mmol/L (98-107); CREATININE 0.85 mg/dL (0.70-1.30); POTASSIUM 5.2 mmol/L (3.5-5.1); SGOT/AST 21 IU/L (3-35); SGPT/ALT 45 U/L (12-78); SODIUM 138 mmol/L (136-145); TOTAL PROTEIN 7.6 gm/dL (6.4-8.2)
[2020-08-27 11:28] LABS: ETHYL ALCOHOL < 3.0 mg/dl (<3)
[2020-08-27 13:05] LABS: BILIRUBIN Negative (Negative); BLOOD Negative (Negative); CLARITY Clear (Clear); COLOR Yellow (Yellow); GLUCOSE Negative (Negative); KETONE Negative (Negative); LEUKO ESTERASE Negative (Negative); NITRITE Negative (Negative); SPECIFIC GRAVITY 1.015 (1.001-1.030)
[2020-08-27] MEDS ORDERED: 'CLONIDINE0.1 MG PO (13:19)
[2020-08-27 13:23] LABS: EPITHELIAL CELLS 0-2; RBC 0-2 rbc/hpf (0-2)
[2020-08-27 14:00] VITALS: BP 125/85
[2020-08-27 16:00] VITALS: BP 134/88
[2020-08-27] MEDS ORDERED: NEURONTIN800 MG PO (16:50)
[2020-08-27 20:00] VITALS: BP 122/78
[2020-08-28] VITALS: BP 130/46; BP 134/82
[2020-08-28 08:00] VITALS: BP 118/80
[2020-08-28 12:00] VITALS: BP 158/58
== END 2020-08-28 13:45 | disposition left against medical advice (07) | DRG 770 ==
LOC: 4E 08:30
PROVIDERS: Registered Nurse; ADMIT Family Medicine; ATTEND Family Medicine
DX: F11.13 Opioid abuse with withdrawal (principal); F31.9 Bipolar disorder, unspecified; I10 Essential (primary) hypertension; G25.81 Restless legs syndrome; F41.9 Anxiety disorder, unspecified; F90.9 Attention-deficit hyperactivity disorder, unspecified type; B19.20 Unspecified viral hepatitis C without hepatic coma; E55.9 Vitamin D deficiency, unspecified; F41.1 Generalized anxiety disorder; K21.9 Gastro-esophageal reflux disease without esophagitis; F43.10 Post-traumatic stress disorder, unspecified; E87.5 Hyperkalemia; Z53.29 Procedure and treatment not carried out because of patient's decision for other reasons; F17.210 Nicotine dependence, cigarettes, uncomplicated; Z80.0 Family history of malignant neoplasm of digestive organs; Z82.49 Family history of ischemic heart disease and other diseases of the circulatory system; Z81.8 Family history of other mental and behavioral disorders; Z84.1 Family history of disorders of kidney and ureter; Z88.0 Allergy status to penicillin; Z88.8 Allergy status to other drugs, medicaments and biological substances; Z79.899 Other long term (current) drug therapy

== ENCOUNTER 2020-09-26 18:41 | Emergency (ER) | payer OTHER ==
[~2020-09-26] VITALS: Ht 177.8 cm; Wt 74.8 kg
[~2020-09-26 18:41] MED LIST changes: +NEURONTIN800 MG PO
[2020-09-26 19:59] LABS: URINE AMPHETAMINES > 1000 (1000ng/ml); URINE BARBITURATES > 200 (200ng/ml); URINE BENZODIAZEPINES > 200 (200ng/ml); URINE CANNABINOIDS (THC) > 50 (50ng/ml); URINE COCAINE < 300 (300ng/ml); URINE METHADONE < 300 (300ng/ml); URINE OPIATES < 300 (300ng/ml)
[2020-09-26 20:01] LABS: URINE PHENCYCLIDINE < 25 (25ng/ml)
[2020-09-26 20:32] LABS: BASO % 0.2 % (0.0-1.0); EOS % 0.2 % (1.0-4.0); HEMATOCRIT 39.5 % (42.0-52.0); LYMPH # 1.3 10*3/uL (1.3-4.4); LYMPH % 23.7 % (27.0-41.0); MEAN CELL VOLUME 85.9 fl (80.0-94.0); MEAN CORPUSCULAR HGB 27.8 pg (27.0-31.0); MEAN CORPUSCULAR HGB CONC 32.4 g/dl (33.0-37.0); MEAN PLATELET VOLUME 9.7 fl (9.6-12.3); MONO # 0.7 10*3/uL (0.1-1.0); MONO % 11.9 % (3.0-9.0); NEUT # 3.6 10*3/uL (2.3-7.9); NEUT % 63.8 % (47.0-73.0); PLATELET COUNT AUTOMATED 282 10*3/uL (130-400); RED CELL DISTRI WIDTH 13.8 % (0-14.5); WHITE BLOOD COUNT 5.7 10*3/uL (4.8-10.8)
[2020-09-26 20:36] LABS: BILIRUBIN Negative (Negative); BLOOD Negative (Negative); CLARITY Clear (Clear); COLOR Yellow (Yellow); GLUCOSE Negative (Negative); KETONE Trace (Negative); LEUKO ESTERASE Negative (Negative); NITRITE Negative (Negative); SPECIFIC GRAVITY 1.025 (1.001-1.030)
[2020-09-26 20:48] LABS: ALBUMIN 3.5 gm/dl (3.1-4.5); ALKALINE PHOSPHATASE 58 U/L (45-117); BUN 15 mg/dl (7-24); CHLORIDE 106 mmol/L (98-107); CREATININE 0.97 mg/dL (0.70-1.30); SGOT/AST 28 IU/L (3-35); SGPT/ALT 45 U/L (12-78); SODIUM 139 mmol/L (136-145); TOTAL PROTEIN 7.3 gm/dL (6.4-8.2)
[2020-09-26 20:49] LABS: ACETAMINOPHEN (TYLENOL) < 5.0 ug/ml (10-30)
[2020-09-26 20:54] LABS: ETHYL ALCOHOL < 3.0 mg/dl (<3)
[2020-09-26 21:02] LABS: RBC 0-2 rbc/hpf (0-2)
[2020-09-26 21:03] LABS: BACTERIA TRACE; CALCIUM OXALATE CRYSTALS 2+
[2020-09-27 03:00] VITALS: BP 130/78
== END 2020-09-27 04:08 | disposition home health service (06) ==
LOC: ED 18:41
PROVIDERS: Emergency Medicine
DX: F31.9 Bipolar disorder, unspecified (principal); Z20.828 Contact with and (suspected) exposure to other viral communicable diseases

== ENCOUNTER → 2020-10-30 | Outpatient (CLI) | payer OTHER | END | disposition home or self-care (01) | LOC: COVID19 11:53 | PROVIDERS: ATTEND Family Medicine | DX: R05 Cough (principal); R06.02 Shortness of breath; Z20.828 Contact with and (suspected) exposure to other viral communicable diseases ==

== ENCOUNTER 2020-11-17 17:29 | Emergency (ER) | payer OTHER ==
[2020-11-17 17:52] LABS: BASO % 0.6 % (0.0-1.0); EOS # 0.3 10*3/uL (0.0-0.4); EOS % 4.7 % (1.0-4.0); HEMATOCRIT 45.2 % (42.0-52.0); LYMPH % 36.8 % (27.0-41.0); MEAN CELL VOLUME 88.6 fl (80.0-94.0); MEAN CORPUSCULAR HGB 27.6 pg (27.0-31.0); MEAN CORPUSCULAR HGB CONC 31.2 g/dl (33.0-37.0); MEAN PLATELET VOLUME 9.3 fl (9.6-12.3); MONO # 0.4 10*3/uL (0.1-1.0); MONO % 8.3 % (3.0-9.0); NEUT # 2.6 10*3/uL (2.3-7.9); NEUT % 49.4 % (47.0-73.0); PLATELET COUNT AUTOMATED 321 10*3/uL (130-400); RED CELL DISTRI WIDTH 13.4 % (0-14.5); WHITE BLOOD COUNT 5.3 10*3/uL (4.8-10.8)
[2020-11-17 18:02] LABS: INTERNATIONAL NORM RATIO 0.9 (2.0-3.5)
[2020-11-17 18:09] LABS: ALBUMIN 3.8 gm/dl (3.1-4.5); ALKALINE PHOSPHATASE 79 U/L (45-117); BUN 10 mg/dl (7-24); CHLORIDE 104 mmol/L (98-107); CREATININE 0.83 mg/dL (0.70-1.30); POTASSIUM 4.4 mmol/L (3.5-5.1); SGOT/AST 29 IU/L (3-35); SGPT/ALT 52 U/L (12-78); SODIUM 136 mmol/L (136-145); TOTAL PROTEIN 7.4 gm/dL (6.4-8.2)
[2020-11-17 18:10] LABS: TROPONIN I < 0.015 ng/ml (<0.045)
[2020-11-17 18:31] VITALS: BP 148/87
== END 2020-11-17 18:25 ==
LOC: ED 17:29
PROVIDERS: Family Medicine
DX: F41.9 Anxiety disorder, unspecified (principal); R07.9 Chest pain, unspecified

== ENCOUNTER 2021-01-01 08:38 | Emergency (ER) | payer OTHER ==
[~2021-01-01] VITALS: Ht 170.1 cm; Wt 81.6 kg
[2021-01-01 09:21] LABS: BASO # 0.1 10*3/uL (0.0-0.1); BASO % 0.7 % (0.0-1.0); EOS # 0.1 10*3/uL (0.0-0.4); EOS % 1.7 % (1.0-4.0); HEMATOCRIT 47.4 % (42.0-52.0); LYMPH # 2.6 10*3/uL (1.3-4.4); LYMPH % 34.5 % (27.0-41.0); MEAN CELL VOLUME 90.3 fl (80.0-94.0); MEAN CORPUSCULAR HGB 28.4 pg (27.0-31.0); MEAN CORPUSCULAR HGB CONC 31.4 g/dl (33.0-37.0); MEAN PLATELET VOLUME 9.6 fl (9.6-12.3); MONO # 0.6 10*3/uL (0.1-1.0); MONO % 8.1 % (3.0-9.0); NEUT # 4.2 10*3/uL (2.3-7.9); NEUT % 54.5 % (47.0-73.0); PLATELET COUNT AUTOMATED 310 10*3/uL (130-400); RED BLOOD COUNT 5.25 10*6/uL (4.50-5.90); RED CELL DISTRI WIDTH 13.3 % (0-14.5); WHITE BLOOD COUNT 7.7 10*3/uL (4.8-10.8)
[2021-01-01 09:34] LABS: ALKALINE PHOSPHATASE 91 U/L (45-117); BUN 21 mg/dl (7-24); CHLORIDE 106 mmol/L (98-107); CREATININE 1.18 mg/dL (0.70-1.30); POTASSIUM 3.8 mmol/L (3.5-5.1); SGOT/AST 36 IU/L (3-35); SGPT/ALT 68 U/L (12-78); SODIUM 139 mmol/L (136-145); TOTAL PROTEIN 7.7 gm/dL (6.4-8.2)
[2021-01-01 09:34] LABS: URINE AMPHETAMINES > 1000 (1000ng/ml); URINE BARBITURATES < 200 (200ng/ml); URINE BENZODIAZEPINES > 200 (200ng/ml); URINE CANNABINOIDS (THC) > 50 (50ng/ml); URINE COCAINE > 300 (300ng/ml); URINE METHADONE < 300 (300ng/ml); URINE OPIATES < 300 (300ng/ml)
[2021-01-01 09:38] LABS: ETHYL ALCOHOL < 3.0 mg/dl (<3)
[2021-01-01 09:38] LABS: URINE PHENCYCLIDINE < 25 (25ng/ml)
[2021-01-01 11:02] VITALS: BP 131/86
[2021-01-01 11:51] LABS: CPK 512 U/L (39-308)
[2021-01-01 12:00] LABS: TROPONIN I < 0.015 ng/ml (<0.045)
== END 2021-01-01 13:25 | disposition home or self-care (01) ==
LOC: ED 08:38
PROVIDERS: Emergency Medicine
DX: T40.604A Poisoning by unspecified narcotics, undetermined, initial encounter (principal); Z20.822 Contact with and (suspected) exposure to COVID-19; K21.9 Gastro-esophageal reflux disease without esophagitis; F19.10 Other psychoactive substance abuse, uncomplicated; F17.200 Nicotine dependence, unspecified, uncomplicated; F14.10 Cocaine abuse, uncomplicated; F15.10 Other stimulant abuse, uncomplicated; Z88.8 Allergy status to other drugs, medicaments and biological substances; Z88.0 Allergy status to penicillin; Z98.890 Other specified postprocedural states; Y92.89 Other specified places as the place of occurrence of the external cause

== ENCOUNTER 2021-06-03 11:32 | Emergency (ER) | payer OTHER ==
[~2021-06-03] VITALS: Wt 76.2 kg
[2021-06-03 11:39] VITALS: BP 125/84
== END 2021-06-03 12:29 | disposition home or self-care (01) ==
LOC: ED 11:32
DX: F11.13 Opioid abuse with withdrawal (principal); H57.89 Other specified disorders of eye and adnexa; R68.83 Chills (without fever); F17.200 Nicotine dependence, unspecified, uncomplicated; Z88.8 Allergy status to other drugs, medicaments and biological substances; Z88.0 Allergy status to penicillin; Z79.899 Other long term (current) drug therapy; Z98.890 Other specified postprocedural states

== ENCOUNTER 2021-08-06 18:42 | Emergency (ER) | payer OTHER ==
[~2021-08-06] VITALS: Wt 79.8 kg
[2021-08-06 18:43] VITALS: BP 156/88
== END 2021-08-06 20:02 | disposition left against medical advice (07) ==
LOC: ED 18:42
DX: T40 Poisoning by, adverse effect of and underdosing of narcotics and psychodysleptics [hallucinogens] (principal); R40.20 Unspecified coma; F90.9 Attention-deficit hyperactivity disorder, unspecified type; F31.9 Bipolar disorder, unspecified; K21.9 Gastro-esophageal reflux disease without esophagitis; F41.0 Panic disorder [episodic paroxysmal anxiety]; F17.200 Nicotine dependence, unspecified, uncomplicated; Z88.0 Allergy status to penicillin; Z88.8 Allergy status to other drugs, medicaments and biological substances; Z79.899 Other long term (current) drug therapy; Z98.890 Other specified postprocedural states

== ENCOUNTER 2021-10-17 16:51 | Emergency (ER) | payer OTHER ==
[~2021-10-17] VITALS: Ht 177.8 cm; Wt 74.8 kg
[2021-10-17 17:52] VITALS: BP 123/86
== END 2021-10-17 21:49 ==
LOC: ED 16:51
DX: S01.81XA Laceration without foreign body of other part of head, initial encounter (principal); Y04.2XXA Assault by strike against or bumped into by another person, initial encounter; Y93.89 Activity, other specified; Y92.89 Other specified places as the place of occurrence of the external cause; Y99.8 Other external cause status

== ENCOUNTER 2023-03-06 20:51 | Emergency (ER) | payer OTHER ==
[~2023-03-06] VITALS: Ht 180.3 cm; Wt 82.6 kg
[2023-03-06 22:19] LABS: BASO % 0.3 % (0.0-1.0); EOS # 0.1 10*3/uL (0.0-0.4); EOS % 0.5 % (1.0-4.0); HEMATOCRIT 40.1 % (42.0-52.0); LYMPH # 1.1 10*3/uL (1.3-4.4); LYMPH % 7.5 % (27.0-41.0); MEAN CELL VOLUME 92.8 fl (80.0-94.0); MEAN CORPUSCULAR HGB 29.6 pg (27.0-31.0); MEAN CORPUSCULAR HGB CONC 31.9 g/dl (33.0-37.0); MEAN PLATELET VOLUME 9.7 fl (9.6-12.3); MONO # 0.7 10*3/uL (0.1-1.0); MONO % 4.7 % (3.0-9.0); NEUT % 85.7 % (47.0-73.0); PLATELET COUNT AUTOMATED 251 10*3/uL (130-400); RED BLOOD COUNT 4.32 10*6/uL (4.50-5.90); RED CELL DISTRI WIDTH 12.7 % (0-14.5); WHITE BLOOD COUNT 15.1 10*3/uL (4.8-10.8)
[2023-03-06 22:46] LABS: ALKALINE PHOSPHATASE 70 U/L (46-116); BUN 10 mg/dl (9-23); CHLORIDE 102 mmol/L (98-107); MYOGLOBIN 160.5 ng/ml (16-116); POTASSIUM 4.5 mmol/L (3.4-5.1); SGPT/ALT 55 U/L (10-49); TOTAL PROTEIN 6.6 gm/dL (6.0-8.0)
[2023-03-06 22:47] LABS: ETHYL ALCOHOL < 3.0 mg/dl (<3)
[2023-03-07 00:24] LABS: BILIRUBIN Negative (Negative); BLOOD Negative (Negative); CLARITY Clear (Clear); COLOR Yellow (Yellow); GLUCOSE Trace (Negative); KETONE Negative (Negative); LEUKO ESTERASE Negative (Negative); NITRITE Negative (Negative); PH 5.5 (4.5-8.0); SPECIFIC GRAVITY 1.015 (1.001-1.030); UROBILINOGEN 0.2 E.U./dl (0.0-1.0)
[2023-03-07 00:37] LABS: URINE AMPHETAMINES Positive (1000ng/ml); URINE BARBITURATES Negative (200ng/ml); URINE BENZODIAZEPINES Negative (200ng/ml); URINE CANNABINOIDS (THC) Positive (50ng/ml); URINE COCAINE Negative (300ng/ml); URINE METHADONE Negative (300ng/ml); URINE OPIATES Negative (300ng/ml); URINE PHENCYCLIDINE Negative (25ng/ml)
[2023-03-07 00:57] VITALS: BP 158/42
[2023-03-07 01:00] LABS: BACTERIA TRACE; RBC 0-2 rbc/hpf (0-2); WBC 0-2 wbc/hpf (0-5)
== END 2023-03-07 01:22 | disposition home or self-care (01) ==
LOC: ED 20:51
PROVIDERS: Nurse Practitioner
DX: T40.411A Poisoning by fentanyl or fentanyl analogs, accidental (unintentional), initial encounter (principal); Z88.8 Allergy status to other drugs, medicaments and biological substances; F17.200 Nicotine dependence, unspecified, uncomplicated; Y92.89 Other specified places as the place of occurrence of the external cause; Z98.890 Other specified postprocedural states

== ENCOUNTER 2023-05-24 15:07 | Emergency (ER) | payer OTHER ==
[~2023-05-24] VITALS: Ht 177.8 cm; Wt 72.6 kg
[2023-05-24 15:19] VITALS: BP 161/90
== END 2023-05-24 18:08 | disposition left against medical advice (07) ==
LOC: ED 15:07
DX: T42.4X1A Poisoning by benzodiazepines, accidental (unintentional), initial encounter (principal); F17.200 Nicotine dependence, unspecified, uncomplicated; Z88.8 Allergy status to other drugs, medicaments and biological substances; Z79.899 Other long term (current) drug therapy; Z98.890 Other specified postprocedural states; Y92.89 Other specified places as the place of occurrence of the external cause

== ENCOUNTER 2023-08-26 17:10 | Emergency (ER) | payer OTHER ==
[~2023-08-26] VITALS: Ht 177.8 cm; Wt 70.3 kg
[2023-08-26 17:25] VITALS: BP 163/100
[2023-08-26 17:53] LABS: BASO % 0.3 % (0.0-1.0); EOS # 0.1 10*3/uL (0.0-0.4); EOS % 1.9 % (1.0-4.0); HEMATOCRIT 37.9 % (42.0-52.0); LYMPH # 2.1 10*3/uL (1.3-4.4); LYMPH % 32.7 % (27.0-41.0); MEAN CELL VOLUME 90.5 fl (80.0-94.0); MEAN CORPUSCULAR HGB 29.6 pg (27.0-31.0); MEAN CORPUSCULAR HGB CONC 32.7 g/dl (33.0-37.0); MEAN PLATELET VOLUME 9.5 fl (9.6-12.3); MONO # 0.6 10*3/uL (0.1-1.0); MONO % 8.9 % (3.0-9.0); NEUT # 3.6 10*3/uL (2.3-7.9); PLATELET COUNT AUTOMATED 259 10*3/uL (130-400); RED BLOOD COUNT 4.19 10*6/uL (4.50-5.90); RED CELL DISTRI WIDTH 13.1 % (0-14.5); WHITE BLOOD COUNT 6.4 10*3/uL (4.8-10.8)
[2023-08-26 18:18] LABS: ALKALINE PHOSPHATASE 66 U/L (46-116); BUN 14 mg/dl (9-23); CHLORIDE 105 mmol/L (98-107); SGPT/ALT 23 U/L (5-49); TOTAL PROTEIN 6.6 gm/dL (6.0-8.0)
[2023-08-26] MEDS ORDERED: MELOXICAM15 MG PO (18:37)
[2023-08-26] MEDS ORDERED: FLOMAX0.4 MG PO (18:37)
== END 2023-08-26 19:19 | disposition home or self-care (01) ==
LOC: ED 17:10
PROVIDERS: Emergency Medicine
DX: N20.0 Calculus of kidney (principal); R11.2 Nausea with vomiting, unspecified; F31.9 Bipolar disorder, unspecified; F41.9 Anxiety disorder, unspecified; K21.9 Gastro-esophageal reflux disease without esophagitis; E78.5 Hyperlipidemia, unspecified; F17.200 Nicotine dependence, unspecified, uncomplicated; Z88.8 Allergy status to other drugs, medicaments and biological substances; Z98.890 Other specified postprocedural states

== ENCOUNTER 2023-08-30 16:16 | Emergency (ER) | payer OTHER ==
[~2023-08-30] VITALS: Wt 81.6 kg
[~2023-08-30 16:16] MED LIST changes: +FLOMAX0.4 MG PO; +MELOXICAM15 MG PO
[2023-08-30 16:19] VITALS: BP 129/99
== END 2023-08-30 16:57 | disposition left against medical advice (07) ==
LOC: ED 16:16
DX: S11.91XA Laceration without foreign body of unspecified part of neck, initial encounter (principal); S01.411A Laceration without foreign body of right cheek and temporomandibular area, initial encounter; F41.9 Anxiety disorder, unspecified; I10 Essential (primary) hypertension; F31.9 Bipolar disorder, unspecified; Z88.8 Allergy status to other drugs, medicaments and biological substances; Z98.890 Other specified postprocedural states; F14.10 Cocaine abuse, uncomplicated; F17.200 Nicotine dependence, unspecified, uncomplicated; X99.1XXA Assault by knife, initial encounter; Y93.89 Activity, other specified; Y92.410 Unspecified street and highway as the place of occurrence of the external cause; Y99.8 Other external cause status

== ENCOUNTER 2023-09-12 21:30 | Emergency (ER) | payer OTHER ==
[~2023-09-12] VITALS: Ht 177.8 cm; Wt 70.8 kg
[2023-09-12 21:40] VITALS: BP 127/75
[2023-09-12] MEDS ORDERED: TAMSULOSIN HCL0.4 MG PO (21:48)
== END 2023-09-12 23:01 | disposition home or self-care (01) ==
LOC: ED 21:30
DX: S93.401A Sprain of unspecified ligament of right ankle, initial encounter (principal); F31.9 Bipolar disorder, unspecified; F41.9 Anxiety disorder, unspecified; I10 Essential (primary) hypertension; F19.10 Other psychoactive substance abuse, uncomplicated; Z88.8 Allergy status to other drugs, medicaments and biological substances; Z98.890 Other specified postprocedural states; F14.10 Cocaine abuse, uncomplicated; F17.200 Nicotine dependence, unspecified, uncomplicated; F15.10 Other stimulant abuse, uncomplicated; X58.XXXA Exposure to other specified factors, initial encounter; Y93.39 Activity, other involving climbing, rappelling and jumping off; Y92.89 Other specified places as the place of occurrence of the external cause; Y99.8 Other external cause status

== ENCOUNTER 2023-11-23 22:17 | Emergency (ER) | payer OTHER ==
[~2023-11-23] VITALS: Ht 172.7 cm; Wt 68.0 kg
[~2023-11-23 22:17] MED LIST changes: +TAMSULOSIN HCL0.4 MG PO
[2023-11-23 22:58] LABS: HEMATOCRIT 42.9 % (42.0-52.0); MEAN CELL VOLUME 86.7 fl (80.0-94.0); MEAN CORPUSCULAR HGB 28.5 pg (27.0-31.0); MEAN CORPUSCULAR HGB CONC 32.9 g/dl (33.0-37.0); MEAN PLATELET VOLUME 9.4 fl (9.6-12.3); PLATELET COUNT AUTOMATED 214 10*3/uL (130-400); RED BLOOD COUNT 4.95 10*6/uL (4.50-5.90); WHITE BLOOD COUNT 8.1 10*3/uL (4.8-10.8)
[2023-11-23 23:07] LABS: MANUAL DIFF REFLEX YES
[2023-11-23 23:19] LABS: PLATELET SUFFICIENCY NORMAL (NORMAL); TOTAL CELLS COUNTED 100 #CELLS
[2023-11-23 23:21] LABS: ALKALINE PHOSPHATASE 135 U/L (46-116); BUN 16 mg/dl (9-23); CHLORIDE 101 mmol/L (98-107); CPK 88 U/L (34-171); ETHYL ALCOHOL 4.9 mg/dl (<3); POTASSIUM 3.6 mmol/L (3.4-5.1); SGPT/ALT 77 U/L (5-49); TOTAL PROTEIN 5.8 gm/dL (6.0-8.0)
[2023-11-23 23:43] LABS: BILIRUBIN Negative (Negative); BLOOD Negative (Negative); CLARITY Clear (Clear); COLOR Yellow (Yellow); GLUCOSE Negative (Negative); KETONE Trace (Negative); LEUKO ESTERASE Negative (Negative); NITRITE Negative (Negative); SPECIFIC GRAVITY 1.015 (1.001-1.030)
[2023-11-23 23:50] LABS: URINE AMPHETAMINES Positive (1000ng/ml); URINE BARBITURATES Negative (200ng/ml); URINE BENZODIAZEPINES Positive (200ng/ml); URINE CANNABINOIDS (THC) Positive (50ng/ml); URINE COCAINE Negative (300ng/ml); URINE METHADONE Negative (300ng/ml); URINE OPIATES Positive (300ng/ml); URINE PHENCYCLIDINE Negative (25ng/ml)
[2023-11-24 06:37] VITALS: BP 94/65
== END 2023-11-24 08:03 | disposition home or self-care (01) ==
LOC: ED 22:17
PROVIDERS: Emergency Medicine
DX: F19.10 Other psychoactive substance abuse, uncomplicated (principal); F31.9 Bipolar disorder, unspecified; F41.9 Anxiety disorder, unspecified; F90.9 Attention-deficit hyperactivity disorder, unspecified type; K21.9 Gastro-esophageal reflux disease without esophagitis; I10 Essential (primary) hypertension; F17.200 Nicotine dependence, unspecified, uncomplicated; Z88.8 Allergy status to other drugs, medicaments and biological substances; Z79.899 Other long term (current) drug therapy; Z98.890 Other specified postprocedural states; Z87.442 Personal history of urinary calculi

== ENCOUNTER 2024-01-25 00:14 | Emergency (ER) | payer OTHER ==
[~2024-01-25] VITALS: Ht 175.2 cm; Wt 79.4 kg
[2024-01-25 00:28] VITALS: BP 115/75
[2024-01-25 00:42] LABS: BASO % 0.5 % (0.0-1.0); EOS # 0.2 10*3/uL (0.0-0.4); EOS % 2.9 % (1.0-4.0); HEMATOCRIT 38.4 % (42.0-52.0); LYMPH # 2.9 10*3/uL (1.3-4.4); LYMPH % 49.3 % (27.0-41.0); MEAN CELL VOLUME 88.1 fl (80.0-94.0); MEAN CORPUSCULAR HGB 28.9 pg (27.0-31.0); MEAN CORPUSCULAR HGB CONC 32.8 g/dl (33.0-37.0); MEAN PLATELET VOLUME 9.4 fl (9.6-12.3); MONO # 0.6 10*3/uL (0.1-1.0); MONO % 10.9 % (3.0-9.0); NEUT # 2.1 10*3/uL (2.3-7.9); NEUT % 36.2 % (47.0-73.0); PLATELET COUNT AUTOMATED 288 10*3/uL (130-400); RED BLOOD COUNT 4.36 10*6/uL (4.50-5.90); RED CELL DISTRI WIDTH 12.7 % (0-14.5); WHITE BLOOD COUNT 5.9 10*3/uL (4.8-10.8)
[2024-01-25 00:56] LABS: BILIRUBIN Negative (Negative); BLOOD Negative (Negative); CLARITY Clear (Clear); COLOR Yellow (Yellow); GLUCOSE Negative (Negative); KETONE Negative (Negative); LEUKO ESTERASE Negative (Negative); NITRITE Negative (Negative); PH 6.5 (4.5-8.0); SPECIFIC GRAVITY 1.025 (1.001-1.030)
[2024-01-25 01:03] LABS: URINE AMPHETAMINES Positive (1000ng/ml); URINE BARBITURATES Negative (200ng/ml); URINE BENZODIAZEPINES Positive (200ng/ml); URINE CANNABINOIDS (THC) Positive (50ng/ml); URINE COCAINE Negative (300ng/ml); URINE METHADONE Negative (300ng/ml); URINE OPIATES Negative (300ng/ml); URINE PHENCYCLIDINE Negative (25ng/ml)
[2024-01-25 01:08] LABS: ALKALINE PHOSPHATASE 55 U/L (46-116); BUN 15 mg/dl (9-23); CHLORIDE 104 mmol/L (98-107); ETHYL ALCOHOL 3.3 mg/dl (<3); LIPASE 35 U/L (12-53); SGPT/ALT 76 U/L (5-49)
[2024-01-25 01:10] LABS: WBC 0-2 wbc/hpf (0-5)
[2024-01-25] MEDS ORDERED: ALBENDAZOLE200 MG PO (19:23)
== END 2024-01-25 01:30 | disposition home or self-care (01) ==
LOC: ED 00:14
PROVIDERS: Internal Medicine
DX: Z04.89 Encounter for examination and observation for other specified reasons (principal); F19.10 Other psychoactive substance abuse, uncomplicated; F31.9 Bipolar disorder, unspecified; F41.9 Anxiety disorder, unspecified; I10 Essential (primary) hypertension; F15.10 Other stimulant abuse, uncomplicated; Z88.8 Allergy status to other drugs, medicaments and biological substances; Z98.890 Other specified postprocedural states; F14.10 Cocaine abuse, uncomplicated; F17.200 Nicotine dependence, unspecified, uncomplicated

== ENCOUNTER 2024-01-25 18:45 | Emergency (ER) | payer OTHER ==
[~2024-01-25] VITALS: Ht 175.2 cm; Wt 79.4 kg
[2024-01-25 18:45] VITALS: BP 120/72
[2024-01-25] MEDS ORDERED: ALBENDAZOLE200 MG PO (19:23)
== END 2024-01-25 19:28 | disposition home or self-care (01) ==
LOC: ED 18:45
DX: B80 Enterobiasis (principal); F41.9 Anxiety disorder, unspecified; I10 Essential (primary) hypertension; F31.9 Bipolar disorder, unspecified; F15.10 Other stimulant abuse, uncomplicated; Z88.8 Allergy status to other drugs, medicaments and biological substances; Z98.890 Other specified postprocedural states; F14.10 Cocaine abuse, uncomplicated; F17.200 Nicotine dependence, unspecified, uncomplicated

== ENCOUNTER 2024-01-28 12:24 | Emergency (ER) | payer OTHER ==
[~2024-01-28] VITALS: Wt 79.4 kg
[~2024-01-28 12:24] MED LIST changes: +ALBENDAZOLE200 MG PO
[2024-01-28 12:33] VITALS: BP 132/79
[2024-01-28 12:45] LABS: BASO % 0.5 % (0.0-1.0); EOS # 0.1 10*3/uL (0.0-0.4); EOS % 1.6 % (1.0-4.0); HEMATOCRIT 40.8 % (42.0-52.0); LYMPH # 2.5 10*3/uL (1.3-4.4); LYMPH % 45.3 % (27.0-41.0); MEAN CELL VOLUME 88.5 fl (80.0-94.0); MEAN CORPUSCULAR HGB 28.9 pg (27.0-31.0); MEAN CORPUSCULAR HGB CONC 32.6 g/dl (33.0-37.0); MEAN PLATELET VOLUME 9.5 fl (9.6-12.3); MONO # 0.4 10*3/uL (0.1-1.0); MONO % 7.9 % (3.0-9.0); NEUT # 2.5 10*3/uL (2.3-7.9); NEUT % 44.5 % (47.0-73.0); PLATELET COUNT AUTOMATED 289 10*3/uL (130-400); RED BLOOD COUNT 4.61 10*6/uL (4.50-5.90); WHITE BLOOD COUNT 5.6 10*3/uL (4.8-10.8)
[2024-01-28 13:01] LABS: ALKALINE PHOSPHATASE 58 U/L (46-116); BUN 11 mg/dl (9-23); CHLORIDE 104 mmol/L (98-107); CPK 175 U/L (34-171); SGPT/ALT 73 U/L (5-49); TOTAL PROTEIN 7.3 gm/dL (6.0-8.0)
[2024-01-28 13:06] LABS: ETHYL ALCOHOL < 3.0 mg/dl (<3)
[2024-01-28 13:28] LABS: BILIRUBIN Negative (Negative); BLOOD Negative (Negative); CLARITY Clear (Clear); COLOR Yellow (Yellow); GLUCOSE Negative (Negative); KETONE Negative (Negative); LEUKO ESTERASE Negative (Negative); NITRITE Negative (Negative); PH 6.5 (4.5-8.0); SPECIFIC GRAVITY <= 1.005 (1.001-1.030)
[2024-01-28 13:36] LABS: URINE AMPHETAMINES Positive (1000ng/ml); URINE BARBITURATES Negative (200ng/ml); URINE BENZODIAZEPINES Positive (200ng/ml); URINE CANNABINOIDS (THC) Positive (50ng/ml); URINE COCAINE Negative (300ng/ml); URINE METHADONE Negative (300ng/ml); URINE OPIATES Negative (300ng/ml); URINE PHENCYCLIDINE Negative (25ng/ml)
[2024-01-28 13:38] LABS: BACTERIA TRACE; HYALINE CAST 0-2
[2024-01-28 13:39] LABS: YEAST TRACE
== END 2024-01-28 14:10 | disposition home or self-care (01) ==
LOC: ED 12:24
PROVIDERS: Physician Assistant Medical
DX: R44.3 Hallucinations, unspecified (principal); F15.10 Other stimulant abuse, uncomplicated; F41.9 Anxiety disorder, unspecified; F31.9 Bipolar disorder, unspecified; I10 Essential (primary) hypertension; Z88.8 Allergy status to other drugs, medicaments and biological substances; Z98.890 Other specified postprocedural states; F14.10 Cocaine abuse, uncomplicated; F17.200 Nicotine dependence, unspecified, uncomplicated

== ENCOUNTER 2024-01-29 23:21 | Emergency (ER) | payer OTHER ==
[2024-01-30 00:04] VITALS: BP 119/83
== END 2024-01-30 00:27 | disposition home or self-care (01) ==
LOC: ED 23:21
DX: M79.641 Pain in right hand (principal); M79.642 Pain in left hand; F41.9 Anxiety disorder, unspecified; I10 Essential (primary) hypertension; F31.9 Bipolar disorder, unspecified; F15.10 Other stimulant abuse, uncomplicated; Z88.8 Allergy status to other drugs, medicaments and biological substances; Z98.890 Other specified postprocedural states; F14.10 Cocaine abuse, uncomplicated; F17.200 Nicotine dependence, unspecified, uncomplicated

== ENCOUNTER 2024-02-07 08:00 | Emergency (ER) | payer OTHER ==
[~2024-02-07] VITALS: Wt 81.6 kg
[2024-02-07 08:16] VITALS: BP 124/79
[2024-02-07] MEDS ORDERED: CEPHALEXIN500 M1 PO (08:28)
== END 2024-02-07 08:30 | disposition home or self-care (01) ==
LOC: ED 08:00
DX: S60.519A Abrasion of unspecified hand, initial encounter (principal); F41.9 Anxiety disorder, unspecified; I10 Essential (primary) hypertension; F31.9 Bipolar disorder, unspecified; Z88.8 Allergy status to other drugs, medicaments and biological substances; Z98.890 Other specified postprocedural states; F14.10 Cocaine abuse, uncomplicated; F17.200 Nicotine dependence, unspecified, uncomplicated; F15.10 Other stimulant abuse, uncomplicated; X58.XXXA Exposure to other specified factors, initial encounter; Y93.89 Activity, other specified; Y92.89 Other specified places as the place of occurrence of the external cause; Y99.8 Other external cause status

== ENCOUNTER 2024-04-02 00:48 | Emergency (ER) | payer OTHER ==
[~2024-04-02] VITALS: Ht 175.2 cm; Wt 77.1 kg
[2024-04-02 01:03] VITALS: BP 111/80
[2024-04-02] MEDS ORDERED: IBUPROFEN 600 MG TAB PO ONE (03:35)
[2024-04-02] MEDS ORDERED: Sulfamethoxazole/Trimethopri 1 TAB TAB PO ONE (03:35)
[2024-04-02] MEDS ORDERED: NAPROXEN250 MG PO (03:36)
[2024-04-02] MEDS ORDERED: SEPTDS PO (03:36)
== END 2024-04-02 04:32 | disposition home or self-care (01) ==
LOC: ED 00:48
DX: L02.416 Cutaneous abscess of left lower limb (principal); F17.200 Nicotine dependence, unspecified, uncomplicated; Z88.8 Allergy status to other drugs, medicaments and biological substances; Z79.899 Other long term (current) drug therapy; Z79.2 Long term (current) use of antibiotics; Z98.890 Other specified postprocedural states

== ENCOUNTER 2024-04-30 16:48 | Emergency (ER) | payer OTHER ==
[~2024-04-30] VITALS: Ht 175.2 cm; Wt 81.6 kg
[~2024-04-30 16:48] MED LIST changes: +NAPROXEN250 MG PO; +SEPTDS PO
[2024-04-30 17:09] VITALS: BP 149/95
== END 2024-04-30 17:45 | disposition home or self-care (01) ==
LOC: ED 16:48
DX: F42.4 Excoriation (skin-picking) disorder (principal); Z48.00 Encounter for change or removal of nonsurgical wound dressing; F41.9 Anxiety disorder, unspecified; I10 Essential (primary) hypertension; F31.9 Bipolar disorder, unspecified; F10.10 Alcohol abuse, uncomplicated; F17.200 Nicotine dependence, unspecified, uncomplicated; F15.10 Other stimulant abuse, uncomplicated; Z88.8 Allergy status to other drugs, medicaments and biological substances; Z98.890 Other specified postprocedural states

== ENCOUNTER 2024-05-10 19:36 | Emergency (ER) | payer OTHER ==
[~2024-05-10] VITALS: Ht 175.2 cm; Wt 77.1 kg
[2024-05-10 19:36] VITALS: BP 102/60
[2024-05-10] MEDS ORDERED: CLONIDINE0.2 MG PO (20:02)
[2024-05-10] MEDS ORDERED: NEURONTIN600 MG PO (20:02)
[2024-05-10] MEDS ORDERED: VISTARIL25 MG PO (20:02)
[2024-05-10] MEDS ORDERED: NATURE'S BLEND F1 MG PO (20:02)
[2024-05-10] MEDS ORDERED: METHOCARBAMOL750 M1 PO (20:03)
[2024-05-10] MEDS ORDERED: DAILY VITAMIN1 EAC3 PO (20:03)
[2024-05-10] MEDS ORDERED: SUBOXONE 8 MG-1 EACH BC (20:03)
[2024-05-10] MEDS ORDERED: IOHEXOL 300 MG/ML 100 ML VIAL IV ONE (20:25)
[2024-05-10 20:34] LABS: BASO % 0.8 % (0.0-1.0); EOS # 0.2 10*3/uL (0.0-0.4); EOS % 3.6 % (1.0-4.0); LYMPH # 1.9 10*3/uL (1.3-4.4); LYMPH % 36.4 % (27.0-41.0); MEAN CELL VOLUME 92.6 fl (80.0-94.0); MEAN CORPUSCULAR HGB 29.7 pg (27.0-31.0); MEAN CORPUSCULAR HGB CONC 32.1 g/dl (33.0-37.0); MEAN PLATELET VOLUME 9.5 fl (9.6-12.3); MONO # 0.3 10*3/uL (0.1-1.0); NEUT # 2.8 10*3/uL (2.3-7.9); PLATELET COUNT AUTOMATED 247 10*3/uL (130-400); RED BLOOD COUNT 4.21 10*6/uL (4.50-5.90); RED CELL DISTRI WIDTH 12.6 % (0-14.5); WHITE BLOOD COUNT 5.3 10*3/uL (4.8-10.8)
[2024-05-10 20:54] LABS: BUN 8 mg/dl (9-23); CHLORIDE 105 mmol/L (98-107); POTASSIUM 4.3 mmol/L (3.4-5.1)
[2024-05-10] MEDS ORDERED: CEPHALEXIN500 M1 PO (23:18)
[2024-05-10] MEDS ORDERED: CEPHALEXIN 500 MG CAP PO ONE (23:25)
== END 2024-05-10 23:16 | disposition home or self-care (01) ==
LOC: ED 19:36
PROVIDERS: Nurse Practitioner Family
DX: L03.311 Cellulitis of abdominal wall (principal); R22.9 Localized swelling, mass and lump, unspecified; F41.9 Anxiety disorder, unspecified; I10 Essential (primary) hypertension; F31.9 Bipolar disorder, unspecified; F17.200 Nicotine dependence, unspecified, uncomplicated; F14.10 Cocaine abuse, uncomplicated; Z88.8 Allergy status to other drugs, medicaments and biological substances; Z98.890 Other specified postprocedural states

== ENCOUNTER 2024-06-15 01:35 | Emergency (ER) | payer OTHER ==
[~2024-06-15] VITALS: Ht 175.2 cm; Wt 68.9 kg
[~2024-06-15 01:35] MED LIST changes: +DAILY VITAMIN1 EAC3 PO; +NATURE'S BLEND F1 MG PO; +SUBOXONE 8 MG-1 EACH BC; +VISTARIL25 MG PO
[2024-06-15 01:40] VITALS: BP 114/88
[2024-06-15 02:18] LABS: BASO % 0.5 % (0.0-1.0); EOS # 0.1 10*3/uL (0.0-0.4); EOS % 1.8 % (1.0-4.0); HEMATOCRIT 41.3 % (42.0-52.0); LYMPH # 3.2 10*3/uL (1.3-4.4); LYMPH % 41.5 % (27.0-41.0); MEAN CELL VOLUME 90.8 fl (80.0-94.0); MEAN CORPUSCULAR HGB 29.5 pg (27.0-31.0); MEAN CORPUSCULAR HGB CONC 32.4 g/dl (33.0-37.0); MONO # 0.6 10*3/uL (0.1-1.0); MONO % 7.6 % (3.0-9.0); NEUT # 3.7 10*3/uL (2.3-7.9); NEUT % 48.5 % (47.0-73.0); PLATELET COUNT AUTOMATED 289 10*3/uL (130-400); RED BLOOD COUNT 4.55 10*6/uL (4.50-5.90); RED CELL DISTRI WIDTH 12.4 % (0-14.5); WHITE BLOOD COUNT 7.7 10*3/uL (4.8-10.8)
[2024-06-15 02:41] LABS: ALKALINE PHOSPHATASE 60 U/L (46-116); BUN 14 mg/dl (9-23); CHLORIDE 104 mmol/L (98-107); LIPASE 29 U/L (12-53); POTASSIUM 4.7 mmol/L (3.4-5.1); SGPT/ALT 49 U/L (5-49); TOTAL PROTEIN 7.4 gm/dL (6.0-8.0)
== END 2024-06-15 04:08 | disposition home or self-care (01) ==
LOC: ED 01:35
PROVIDERS: Internal Medicine
DX: Z91.199 Patient's noncompliance with other medical treatment and regimen due to unspecified reason (principal); R11.2 Nausea with vomiting, unspecified; B83.9 Helminthiasis, unspecified; F41.9 Anxiety disorder, unspecified; I10 Essential (primary) hypertension; F31.9 Bipolar disorder, unspecified; F10.10 Alcohol abuse, uncomplicated; F15.10 Other stimulant abuse, uncomplicated; F17.200 Nicotine dependence, unspecified, uncomplicated; Z88.8 Allergy status to other drugs, medicaments and biological substances; Z98.890 Other specified postprocedural states

== ENCOUNTER 2024-06-30 10:49 | Emergency (ER) | payer OTHER ==
[2024-06-30 11:02] VITALS: BP 138/81
[2024-06-30] MEDS ORDERED: Acetaminophen/Hydrocodone 5 MG/325 MG TABLET PO ONE (11:10)
[2024-06-30] MEDS ORDERED: CLINDAMYCIN HCL 300 MG CAPSULE PO ONE ×3 (11:10→11:15)
[2024-06-30] MEDS ORDERED: HYDROCODONE-AC1 EACH PO (11:11)
[2024-06-30] MEDS ORDERED: CLEOCIN HCL300 MG PO (11:11)
== END 2024-06-30 11:24 | disposition home or self-care (01) ==
LOC: ED 10:49
DX: L05.91 Pilonidal cyst without abscess (principal); F31.9 Bipolar disorder, unspecified; F41.9 Anxiety disorder, unspecified; I10 Essential (primary) hypertension; F14.10 Cocaine abuse, uncomplicated; F17.200 Nicotine dependence, unspecified, uncomplicated; F15.10 Other stimulant abuse, uncomplicated; Z88.8 Allergy status to other drugs, medicaments and biological substances; Z98.890 Other specified postprocedural states

== ENCOUNTER 2024-07-04 08:37 | Emergency (ER) | payer OTHER ==
[~2024-07-04] VITALS: Ht 177.8 cm; Wt 70.3 kg
[~2024-07-04 08:37] MED LIST changes: +CLEOCIN HCL300 MG PO; +HYDROCODONE-AC1 EACH PO
[2024-07-04 08:42] VITALS: BP 136/84
[2024-07-04] MEDS ORDERED: ACETAMINOPHEN 325 MG TAB PO ONE (09:15)
[2024-07-04] MEDS ORDERED: Ondansetron4 MG PO (14:55)
== END 2024-07-04 09:17 | disposition home or self-care (01) ==
LOC: ED 08:37
DX: L02.31 Cutaneous abscess of buttock (principal); F41.9 Anxiety disorder, unspecified; I10 Essential (primary) hypertension; F31.9 Bipolar disorder, unspecified; F17.200 Nicotine dependence, unspecified, uncomplicated; F14.10 Cocaine abuse, uncomplicated; F15.10 Other stimulant abuse, uncomplicated; Z88.8 Allergy status to other drugs, medicaments and biological substances; Z98.890 Other specified postprocedural states

== ENCOUNTER 2024-07-04 14:06 | Emergency (ER) | payer OTHER ==
[~2024-07-04] VITALS: Ht 175.2 cm; Wt 71.7 kg
[2024-07-04 14:12] VITALS: BP 135/94
[2024-07-04] MEDS ORDERED: SODIUM CHLORIDE 0.9% 1,000 ML IV ONE (14:25)
[2024-07-04] MEDS ORDERED: Metoclopramide Hydrochloride 10 MG/2 ML AMP IV ONE (14:30)
[2024-07-04 14:39] LABS: BASO % 0.5 % (0.0-1.0); EOS # 0.2 10*3/uL (0.0-0.4); EOS % 2.4 % (1.0-4.0); LYMPH # 2.5 10*3/uL (1.3-4.4); LYMPH % 29.1 % (27.0-41.0); MEAN CELL VOLUME 88.6 fl (80.0-94.0); MEAN CORPUSCULAR HGB 29.2 pg (27.0-31.0); MEAN CORPUSCULAR HGB CONC 32.9 g/dl (33.0-37.0); MEAN PLATELET VOLUME 9.5 fl (9.6-12.3); MONO # 0.8 10*3/uL (0.1-1.0); MONO % 9.4 % (3.0-9.0); NEUT # 4.9 10*3/uL (2.3-7.9); NEUT % 58.4 % (47.0-73.0); PLATELET COUNT AUTOMATED 339 10*3/uL (130-400); RED BLOOD COUNT 4.63 10*6/uL (4.50-5.90); RED CELL DISTRI WIDTH 12.6 % (0-14.5); WHITE BLOOD COUNT 8.4 10*3/uL (4.8-10.8)
[2024-07-04] MEDS ORDERED: Ondansetron Hydrochloride 4 MG TAB SL ONE ×2 (14:40→14:45)
[2024-07-04] MEDS ORDERED: Ondansetron4 MG PO (14:55)
[2024-07-04 14:58] LABS: BUN 13 mg/dl (9-23); CHLORIDE 104 mmol/L (98-107); LIPASE 33 U/L (12-53); POTASSIUM 4.7 mmol/L (3.4-5.1)
== END 2024-07-04 15:03 | disposition home or self-care (01) ==
LOC: ED 14:06
PROVIDERS: Emergency Medicine
DX: R11.2 Nausea with vomiting, unspecified (principal); F41.9 Anxiety disorder, unspecified; I10 Essential (primary) hypertension; F31.9 Bipolar disorder, unspecified; F14.10 Cocaine abuse, uncomplicated; F17.200 Nicotine dependence, unspecified, uncomplicated; F15.10 Other stimulant abuse, uncomplicated; Z88.8 Allergy status to other drugs, medicaments and biological substances; Z98.890 Other specified postprocedural states

== ENCOUNTER 2024-10-07 02:48 | Emergency (ER) | payer OTHER ==
[~2024-10-07] VITALS: Ht 175.2 cm; Wt 65.8 kg
[~2024-10-07 02:48] MED LIST changes: +Ondansetron4 MG PO
[2024-10-07 03:02] VITALS: BP 108/66
== END 2024-10-07 03:24 | disposition left against medical advice (07) ==
LOC: ED 02:48
DX: R42 Dizziness and giddiness (principal); Z53.29 Procedure and treatment not carried out because of patient's decision for other reasons; R53.1 Weakness; F41.9 Anxiety disorder, unspecified; F31.9 Bipolar disorder, unspecified; I10 Essential (primary) hypertension; F14.10 Cocaine abuse, uncomplicated; F17.200 Nicotine dependence, unspecified, uncomplicated; Z88.8 Allergy status to other drugs, medicaments and biological substances; Z98.890 Other specified postprocedural states

== ENCOUNTER 2024-10-28 16:13 | Emergency (ER) | payer OTHER ==
[~2024-10-28] VITALS: Ht 175.2 cm; Wt 68.0 kg
[2024-10-28 17:01] VITALS: BP 159/86
[2024-10-28 18:30] LABS: BASO % 0.3 % (0.0-1.0); EOS # 0.1 10*3/uL (0.0-0.4); EOS % 2.3 % (1.0-4.0); HEMATOCRIT 44.2 % (42.0-52.0); MEAN CELL VOLUME 89.7 fl (80.0-94.0); MEAN CORPUSCULAR HGB 28.6 pg (27.0-31.0); MEAN CORPUSCULAR HGB CONC 31.9 g/dl (33.0-37.0); MEAN PLATELET VOLUME 9.4 fl (9.6-12.3); MONO # 0.4 10*3/uL (0.1-1.0); MONO % 6.3 % (3.0-9.0); NEUT # 2.6 10*3/uL (2.3-7.9); NEUT % 44.4 % (47.0-73.0); PLATELET COUNT AUTOMATED 263 10*3/uL (130-400); RED BLOOD COUNT 4.93 10*6/uL (4.50-5.90); RED CELL DISTRI WIDTH 13.2 % (0-14.5); WHITE BLOOD COUNT 5.7 10*3/uL (4.8-10.8)
[2024-10-28 18:52] LABS: ALKALINE PHOSPHATASE 68 U/L (46-116); BUN 8 mg/dl (9-23); CHLORIDE 103 mmol/L (98-107); CPK 52 U/L (34-171); POTASSIUM 3.7 mmol/L (3.4-5.1); SGPT/ALT 21 U/L (5-49)
[2024-10-28 19:02] LABS: ETHYL ALCOHOL < 3.0 mg/dl (<3)
[2024-10-28] MEDS ORDERED: LORazepam 1 MG TAB PO ONE (20:30)
[2024-10-28 23:45] LABS: BILIRUBIN Negative (Negative); BLOOD Negative (Negative); CLARITY Clear (Clear); COLOR Yellow (Yellow); GLUCOSE Negative (Negative); KETONE Negative (Negative); LEUKO ESTERASE Negative (Negative); NITRITE Negative (Negative); UROBILINOGEN 0.2 E.U./dl (0.0-1.0)
[2024-10-28 23:52] LABS: URINE AMPHETAMINES Positive (1000ng/ml); URINE BARBITURATES Negative (200ng/ml); URINE BENZODIAZEPINES Positive (200ng/ml); URINE CANNABINOIDS (THC) Positive (50ng/ml); URINE COCAINE Negative (300ng/ml); URINE METHADONE Negative (300ng/ml); URINE OPIATES Negative (300ng/ml); URINE PHENCYCLIDINE Negative (25ng/ml)
[2024-10-28] MEDS ORDERED: LORazepam 2 MG TAB PO ONE (23:55)
[2024-10-29 00:08] LABS: CALCIUM OXALATE CRYSTALS Trace
[2024-10-29] MEDS ORDERED: LORazepam 2 MG TAB PO ONE (01:45)
[2024-10-29] MEDS ORDERED: cloNIDine Hydrochloride 0.1 MG TAB PO ONE (01:45)
== END 2024-10-29 08:25 | disposition home or self-care (01) ==
LOC: ED 16:13
PROVIDERS: Nurse Practitioner Family
DX: Z76.5 Malingerer [conscious simulation] (principal); F19.10 Other psychoactive substance abuse, uncomplicated; F31.9 Bipolar disorder, unspecified; F41.9 Anxiety disorder, unspecified; F90.9 Attention-deficit hyperactivity disorder, unspecified type; K21.9 Gastro-esophageal reflux disease without esophagitis; I10 Essential (primary) hypertension; E87.5 Hyperkalemia; F15.10 Other stimulant abuse, uncomplicated; F11.10 Opioid abuse, uncomplicated; F14.10 Cocaine abuse, uncomplicated; F12.10 Cannabis abuse, uncomplicated; F17.200 Nicotine dependence, unspecified, uncomplicated; Z79.899 Other long term (current) drug therapy; Z87.442 Personal history of urinary calculi; Z88.8 Allergy status to other drugs, medicaments and biological substances; Z98.890 Other specified postprocedural states

== ENCOUNTER 2025-01-08 17:24 | Emergency (ER) | payer OTHER ==
[~2025-01-08] VITALS: Wt 64.9 kg
[2025-01-08 17:40] VITALS: BP 124/97
== END 2025-01-08 18:35 | disposition home or self-care (01) ==
LOC: ED 17:24
DX: S46.912A Strain of unspecified muscle, fascia and tendon at shoulder and upper arm level, left arm, initial encounter (principal); F41.9 Anxiety disorder, unspecified; I10 Essential (primary) hypertension; F31.9 Bipolar disorder, unspecified; F19.10 Other psychoactive substance abuse, uncomplicated; F14.10 Cocaine abuse, uncomplicated; F17.200 Nicotine dependence, unspecified, uncomplicated; F15.10 Other stimulant abuse, uncomplicated; Z88.8 Allergy status to other drugs, medicaments and biological substances; Z98.890 Other specified postprocedural states; W22.8XXA Striking against or struck by other objects, initial encounter; Y93.89 Activity, other specified; Y92.009 Unspecified place in unspecified non-institutional (private) residence as the place of occurrence of the external cause; Y99.8 Other external cause status

== ENCOUNTER → 2025-02-11 | Outpatient (CLI) | payer OTHER | END | disposition home or self-care (01) | LOC: LAB 18:00 | PROVIDERS: ATTEND Physician Assistant Medical | DX: B83.9 Helminthiasis, unspecified (principal) ==

== ENCOUNTER 2025-02-21 07:50 | Emergency (ER) | payer OTHER ==
[~2025-02-21] VITALS: Ht 177.8 cm; Wt 65.4 kg
[2025-02-21] MEDS ORDERED: ALBENDAZOLE200 MG PO (09:05)
[2025-02-21 09:06] VITALS: BP 92/65
== END 2025-02-21 10:08 | disposition home or self-care (01) ==
LOC: ED 07:50
DX: S01.01XA Laceration without foreign body of scalp, initial encounter (principal); F14.10 Cocaine abuse, uncomplicated; F17.200 Nicotine dependence, unspecified, uncomplicated; Z88.8 Allergy status to other drugs, medicaments and biological substances; Z79.899 Other long term (current) drug therapy; Z98.890 Other specified postprocedural states; W03.XXXA Other fall on same level due to collision with another person, initial encounter; Y93.89 Activity, other specified; Y92.89 Other specified places as the place of occurrence of the external cause; Y99.8 Other external cause status

== ENCOUNTER 2025-03-14 09:45 | Emergency (ER) | payer OTHER ==
[~2025-03-14] VITALS: Ht 175.2 cm; Wt 72.6 kg
[2025-03-14 09:52] VITALS: BP 103/60
== END 2025-03-14 10:11 | disposition home or self-care (01) ==
LOC: ED 09:45
DX: S01.01XD Laceration without foreign body of scalp, subsequent encounter (principal); Z48.02 Encounter for removal of sutures; Z88.8 Allergy status to other drugs, medicaments and biological substances; Z79.899 Other long term (current) drug therapy; Z98.890 Other specified postprocedural states; Z87.891 Personal history of nicotine dependence; W45.8XXD Other foreign body or object entering through skin, subsequent encounter

== ENCOUNTER 2025-04-02 11:45 | Emergency (ER) | payer OTHER ==
[~2025-04-02] VITALS: Ht 175.2 cm; Wt 68.0 kg
[2025-04-02] MEDS ORDERED: Acetaminophen/Oxycodone 5 MG/325 MG TABLET PO ONE (11:50)
[2025-04-02 11:55] VITALS: BP 137/88
[2025-04-02] MEDS ORDERED: PERCOCET 5-3251 EACH PO (13:56)
== END 2025-04-02 14:09 | disposition home or self-care (01) ==
LOC: ED 11:45
DX: S42.001A Fracture of unspecified part of right clavicle, initial encounter for closed fracture (principal); M54.2 Cervicalgia; R51.9 Headache, unspecified; M62.838 Other muscle spasm; F31.9 Bipolar disorder, unspecified; F41.9 Anxiety disorder, unspecified; Z88.8 Allergy status to other drugs, medicaments and biological substances; Z79.899 Other long term (current) drug therapy; Z98.890 Other specified postprocedural states; Z87.891 Personal history of nicotine dependence; V19.3XXA Pedal cyclist (driver) (passenger) injured in unspecified nontraffic accident, initial encounter; Y93.I9 Activity, other involving external motion; Y92.488 Other paved roadways as the place of occurrence of the external cause; Y99.8 Other external cause status

== ENCOUNTER 2025-04-06 08:16 | Emergency (ER) | payer OTHER ==
[~2025-04-06] VITALS: Ht 177.8 cm; Wt 65.5 kg
[~2025-04-06 08:16] MED LIST changes: +PERCOCET 5-3251 EACH PO
[2025-04-06 08:30] VITALS: BP 142/94
[2025-04-06 08:57] LABS: BASO % 0.3 % (0.0-1.0); EOS # 0.1 10*3/uL (0.0-0.4); EOS % 0.4 % (1.0-4.0); HEMATOCRIT 36.5 % (42.0-52.0); MEAN CELL VOLUME 88.4 fl (80.0-94.0); MEAN CORPUSCULAR HGB 28.6 pg (27.0-31.0); MEAN CORPUSCULAR HGB CONC 32.3 g/dl (33.0-37.0); MEAN PLATELET VOLUME 9.4 fl (9.6-12.3); MONO % 9.1 % (3.0-9.0); NEUT # 8.3 10*3/uL (2.3-7.9); PLATELET COUNT AUTOMATED 321 10*3/uL (130-400); RED BLOOD COUNT 4.13 10*6/uL (4.50-5.90); RED CELL DISTRI WIDTH 12.5 % (0-14.5); WHITE BLOOD COUNT 11.2 10*3/uL (4.8-10.8)
[2025-04-06 09:22] LABS: POTASSIUM 3.9 mmol/L (3.4-5.1); TOTAL PROTEIN 6.9 gm/dL (6.0-8.0)
[2025-04-06] MEDS ORDERED: SEPTDS PO (09:43)
[2025-04-06] MEDS ORDERED: Sulfamethoxazole/Trimethopri 1 TAB TAB PO ONE (09:45)
[2025-04-07] MEDS ORDERED: SEPTDS PO (15:28)
== END 2025-04-06 09:53 | disposition home or self-care (01) ==
LOC: ED 08:16
PROVIDERS: Internal Medicine
DX: L03.114 Cellulitis of left upper limb (principal); D64.9 Anemia, unspecified; F19.10 Other psychoactive substance abuse, uncomplicated; Z88.8 Allergy status to other drugs, medicaments and biological substances; Z79.899 Other long term (current) drug therapy; Z98.890 Other specified postprocedural states; Z87.891 Personal history of nicotine dependence

== ENCOUNTER 2025-04-28 23:46 | Emergency (ER) | payer SELFPAY ==
[~2025-04-28] VITALS: Ht 175.2 cm; Wt 72.6 kg
[2025-04-29 00:08] VITALS: BP 129/78
[2025-04-29] MEDS ORDERED: PREDNISONE20 M1 PO (02:41)
== END 2025-04-29 03:18 | disposition home or self-care (01) ==
LOC: ED 23:46
DX: S93.401A Sprain of unspecified ligament of right ankle, initial encounter (principal); S93.601A Unspecified sprain of right foot, initial encounter; F17.200 Nicotine dependence, unspecified, uncomplicated; Z88.8 Allergy status to other drugs, medicaments and biological substances; Z79.899 Other long term (current) drug therapy; Z98.890 Other specified postprocedural states; X50.1XXA Overexertion from prolonged static or awkward postures, initial encounter; Y93.89 Activity, other specified; Y92.89 Other specified places as the place of occurrence of the external cause; Y99.8 Other external cause status

== ENCOUNTER 2025-07-10 20:04 | Emergency (ER) | payer OTHER ==
[~2025-07-10] VITALS: Ht 175.2 cm; Wt 68.0 kg
[~2025-07-10 20:04] MED LIST changes: +PREDNISONE20 M1 PO
[2025-07-10 20:25] VITALS: BP 136/83
[2025-07-10 21:01] LABS: BASO # 0.1 10*3/uL (0.0-0.1); BASO % 0.5 % (0.0-1.0); EOS # 0.2 10*3/uL (0.0-0.4); EOS % 1.8 % (1.0-4.0); MEAN CELL VOLUME 88.6 fl (80.0-94.0); MEAN CORPUSCULAR HGB 27.4 pg (27.0-31.0); MEAN PLATELET VOLUME 9.5 fl (9.6-12.3); MONO # 0.6 10*3/uL (0.1-1.0); MONO % 6.4 % (3.0-9.0); NEUT # 5.7 10*3/uL (2.3-7.9); NEUT % 58.8 % (47.0-73.0); NUCLEATED RED BLOOD CELL 0.0 % (0.0-0.0); NUCLEATED RED BLOOD CELL 0.0 10*3/uL (0.0-0.0); PLATELET COUNT AUTOMATED 327 10*3/uL (130-400); RED CELL DISTRI WIDTH 15.0 % (0-14.5)
[2025-07-10 21:36] LABS: BUN 15.0 mg/dl (9-23); CPK 57.0 U/L (34-171)
== END 2025-07-10 21:52 | disposition left against medical advice (07) ==
LOC: ED 20:04
PROVIDERS: Emergency Medicine
DX: L08.9 Local infection of the skin and subcutaneous tissue, unspecified (principal); R00.0 Tachycardia, unspecified; F90.9 Attention-deficit hyperactivity disorder, unspecified type; F41.9 Anxiety disorder, unspecified; F31.9 Bipolar disorder, unspecified; K21.9 Gastro-esophageal reflux disease without esophagitis; I10 Essential (primary) hypertension; F17.210 Nicotine dependence, cigarettes, uncomplicated; Z88.8 Allergy status to other drugs, medicaments and biological substances; Z79.899 Other long term (current) drug therapy; Z79.2 Long term (current) use of antibiotics; Z87.442 Personal history of urinary calculi; Z98.890 Other specified postprocedural states; Z53.29 Procedure and treatment not carried out because of patient's decision for other reasons

== ENCOUNTER 2025-09-24 20:19 | Emergency (ER) | payer OTHER ==
[~2025-09-24] VITALS: Ht 177.8 cm; Wt 79.4 kg
[2025-09-24 20:24] VITALS: BP 127/88
[2025-09-24 21:31] LABS: BILIRUBIN Negative (Negative); BLOOD Negative (Negative); CLARITY Clear (Clear); COLOR Yellow (Yellow); KETONE Negative (Negative); LEUKO ESTERASE Negative (Negative); NITRITE Negative (Negative); PH 6.5 (4.5-8.0); SPECIFIC GRAVITY 1.010 (1.001-1.030); UROBILINOGEN 0.2 E.U./dl (0.0-1.0)
== END 2025-09-24 23:12 | disposition home or self-care (01) ==
LOC: ED 20:19
PROVIDERS: Nurse Practitioner Family
DX: N28.9 Disorder of kidney and ureter, unspecified (principal); R10.A1 Flank pain, right side; R11.2 Nausea with vomiting, unspecified; F17.200 Nicotine dependence, unspecified, uncomplicated; Z88.8 Allergy status to other drugs, medicaments and biological substances; Z79.899 Other long term (current) drug therapy; Z98.890 Other specified postprocedural states

== ENCOUNTER 2025-10-14 21:06 | Emergency (ER) | payer OTHER ==
[~2025-10-14] VITALS: Ht 175.2 cm; Wt 89.4 kg
[2025-10-14 21:11] VITALS: BP 131/87
[2025-10-14] MEDS ORDERED: BUPRENORPHINE SQ (21:12)
== END 2025-10-14 22:54 ==
LOC: ED 21:06
DX: S70.01XA Contusion of right hip, initial encounter (principal); S50.01XA Contusion of right elbow, initial encounter; S40.011A Contusion of right shoulder, initial encounter; S09.90XA Unspecified injury of head, initial encounter; M54.2 Cervicalgia; F41.9 Anxiety disorder, unspecified; K21.9 Gastro-esophageal reflux disease without esophagitis; F32.A Depression, unspecified; I10 Essential (primary) hypertension; F17.200 Nicotine dependence, unspecified, uncomplicated; Z88.8 Allergy status to other drugs, medicaments and biological substances; Z79.899 Other long term (current) drug therapy; Z87.442 Personal history of urinary calculi; Z98.890 Other specified postprocedural states; W01.198A Fall on same level from slipping, tripping and stumbling with subsequent striking against other object, initial encounter; Y93.89 Activity, other specified; Y92.89 Other specified places as the place of occurrence of the external cause; Y99.8 Other external cause status